=== PATIENT | female | born 1950 | race Caucasian/White ===

== ENCOUNTER 2022-04-05 11:33 | Inpatient (IN) | payer OTHER ==
[~2022-04-05] VITALS: Ht 165.1 cm; Wt 91.6 kg
[2022-04-05] MEDS ORDERED: OXYB5TAB16 PO (12:16)
[2022-04-05] MEDS ORDERED: MULT-24 PO (12:16)
[2022-04-05] MEDS ORDERED: LOSA100T31 PO (12:16)
[2022-04-05] MEDS ORDERED: BUSP15TA3 PO (12:16)
[2022-04-05] MEDS ORDERED: LANS30CA56 PO (12:16)
[2022-04-05] MEDS ORDERED: SPIR25TA6 PO (12:16)
[2022-04-05] MEDS ORDERED: PILO5TAB10 PO (12:16)
[2022-04-05] MEDS ORDERED: CITA20TA16 PO (12:16)
[2022-04-05] MEDS ORDERED: DIPH25CA51 PO (12:16)
[2022-04-05] MEDS ORDERED: FURO40TA5 PO (12:16)
[2022-04-05] MEDS ORDERED: CETI-194 PO (12:16)
[2022-04-05] MEDS ORDERED: DILTIAZEM HCL 50 MG IV IV ONE ×2 (12:30→14:00)
[2022-04-05] MEDS ORDERED: DILTIAZEM HCL 50 MG IV ONE (12:39)
[2022-04-05 12:47] LABS: HEMATOCRIT 38 % (33-45); HEMOGLOBIN 12.2 g/dL (11.5-14.8); LYMPHOCYTES # (AUTO) 0.8 K/uL (0.8-4.8); LYMPHOCYTES % (AUTO) 1.9 % (20.0-44.0); MEAN CORPUSCULAR HGB CONC 32 g/dl (31.0-36.0); MEAN CORPUSCULAR VOLUME 91 fL (82-100); MONOCYTES # (AUTO) 1.2 K/uL (0.1-1.30); MONOCYTES % (AUTO) 2.8 % (2.0-12.0); NEUTROPHILS # (AUTO) 41.3 K/uL (1.8-8.9); NEUTROPHILS % (AUTO) 95.3 % (43.0-81.0); RED BLOOD CELL COUNT(AUTO) 4.16 MIL/uL (4.0-5.2)
[2022-04-05 13:16] LABS: PLATELET COUNT (AUTO) 950 K/uL (150-450); WHITE BLOOD COUNT (AUTO) 43.3 K/uL (4.3-11.0)
--- NOTE | 2022-04-05 13:16 | NUR ---
WBC 43.3 PLATLET 950
[2022-04-05 13:17] LABS: ALANINE AMINOTRANSFERASE 32 U/L (12-78); ALBUMIN 1.7 g/dL (3.4-5.0); ALKALINE PHOSPHATASE 257 U/L (46-116); ASPARTATE AMINOTRANSFERASE 22 U/L (15-37); BILIRUBIN,DIRECT 0.7 mg/dL (0.0-0.2); BILIRUBIN,TOTAL 0.9 mg/dL (0.2-1.0); CALCIUM, SERUM 7.9 mg/dL (8.5-10.1); CARBON DIOXIDE 23 mmol/L (21-32); CHLORIDE 97 mmol/L (98-107); CREATININE 1.9 mg/dL (0.6-1.3); GLUCOSE 96 mg/dL (74-106); SODIUM SERUM 130 mmol/L (136-145); TOTAL PROTEIN, SERUM 5.7 g/dL (6.4-8.2); UREA NITROGEN, BLOOD 66 mg/dL (7-18)
--- NOTE | 2022-04-05 13:18 | NUR ---
SMITH REGAL [phone]
[2022-04-05] MEDS ORDERED: FUROSEMIDE 40 MG/4 ML VIAL IV ONE (13:30)
[2022-04-05] MEDS ORDERED: CEFEPIME 1 GM in IV D5W 50 ML IV ONE (13:30)
[2022-04-05] MEDS ORDERED: VANCOMYCIN 1 GM in IV D5W 250 ML IV ONE (13:30)
[2022-04-05] MEDS ORDERED: DILTIAZEM HCL 25 MG IV ONE (13:38)
[2022-04-05 14:06] LABS: BAND % (MANUAL) 3 % (0.0-5.0); LYMPHOCYTES % (MANUAL) 4 % (16-48); MONOCYTES % (MANUAL) 1 % (0-11.0); NEUTROPHILS % (MANUAL) 92 (42-76)
--- NOTE | 2022-04-05 14:20 | NUR ---
CALLED DR. KIRSTEN PRINCE .
[2022-04-05] MEDS ORDERED: FUROSEMIDE 40 MG/4 ML VIAL ONE (14:40)
[2022-04-05] MEDS ORDERED: DILTIAZEM HCL CD 120 MG PO ONE (15:00)
[2022-04-05] MEDS ORDERED: DILTIAZEM HCL CD 120 MG ONE (16:15)
--- NOTE | 2022-04-05 19:29 | NUR ---
COVID ANTIGEN SWAB COLLECTED AND SENT TO LAB
--- NOTE | 2022-04-05 20:24 | NUR ---
US TECH AT PT'S BEDSIDE FOR ECG
[2022-04-05 20:25] VITALS: BP 125/50
--- NOTE | 2022-04-05 20:29 | NUR ---
REPORT GIVEN TO AIDE PedroW RN FOR EMILIA
--- NOTE | 2022-04-05 20:55 | NUR ---
RN NOTE; RECEIVED PATIENT FROM ER WITH RAMOS BOLIVAR ABLE TO VERBALIZE NEEDS,SUSANA WELL ON RM AIR SATING 99%,NO SIGN SOB/DISTRESS NOTED,NO COMPLAIN FOR PAIN/DISCOMFORT AT THIS TIME,IV ACCESS ON LAC 20G PATENT AND INTACT,PT WAS ORIENT THE RM WITH VERBALLY UNDERSTANDING,SAFETY MEASURE IN PLACE,CALL LIGHT WITHIN REACH,WILL CONTINUE TO MONITOR.
--- NOTE | 2022-04-05 21:03 | NUR ---
PT TRANSFERRED TO [facility]-2 VIA ACLS PROTOCOL. VSS. ALL BELONGINGS WITH PT.
[2022-04-05] MEDS: IV NS 0.9% 1,000 ML IV SCH (22:02)
[2022-04-05] MEDS: PIPERACILLIN /TAZOBACTAM 3.375 G in IV D5W 50 ML IV SCH (23:07)
[2022-04-06] VITALS: BP 104/48
[2022-04-06] MEDS: ZOLPIDEM TARTRATE 10 MG TABLET PO PRN ×2 (00:53→22:43)
--- NOTE | 2022-04-06 00:55 | NUR ---
RN NOTE; I TEXTED DOC,MIRANDA SINGLETARY,VTE SCORE 2 AND PT COMPLAINED CAN'T SLEEP,PT ASKING FOR SLEEPING PILL.WITH A NEW ORDER,AMBIEN 10MG QHS PRN AND HEPARIN 5000 U SQ Q12HRS.
[2022-04-06 04:00] VITALS: BP 124/59
[2022-04-06] MEDS: IV NS 0.9% 1,000 ML IV SCH ×2 (05:05→15:30)
[2022-04-06] MEDS: PIPERACILLIN /TAZOBACTAM 3.375 G in IV D5W 50 ML IV SCH ×4 (05:10→23:05)
--- NOTE | 2022-04-06 06:29 | NUR ---
RN CLOSING NOTE; PATIENT IN BED AAOX4 ABLE TO MAKE NEEDS KNOWN,SUSANA WELL ON RM AIR SATING 98%,NO SIGN SOB/DISTRESS NOTED,NO COMPLAIN FOR PAIN/DISCOMFORT DURING SHIFT,DUE MEDS GIVEN ORDER.ALL NEEDS ATTENDED,IV ACCESS ON LAC 20G RUNNING NS 100ML/HR,SAFETY MEASURE IN PLACE,CALL LIGHT WITHIN REACH,WILL ENDORSED TO NEXT SHIFT.
--- NOTE | 2022-04-06 07:30 | NUR ---
RN Accepting Note Patient AOx4 able to express her own concerns. Patient made aware of plan of care, verbalized understanding. Patient with no signs of distress or discomfort, all safety precautions taken, call light and table within reach and bed at lowest position. Will monitor and provide care as needed
[2022-04-06 07:33] LABS: BASOPHILS % (AUTO) 0.1 % (0.0-2.0); EOSINOPHILS % (AUTO) 0.2 % (0.0-6.0); HEMATOCRIT 32 % (33-45); LYMPHOCYTES # (AUTO) 1.1 K/uL (0.8-4.8); LYMPHOCYTES % (AUTO) 4.4 % (20.0-44.0); MEAN CORPUSCULAR HGB CONC 34 g/dl (31.0-36.0); MEAN CORPUSCULAR VOLUME 91 fL (82-100); MONOCYTES # (AUTO) 1.3 K/uL (0.1-1.30); MONOCYTES % (AUTO) 5.2 % (2.0-12.0); NEUTROPHILS # (AUTO) 22.2 K/uL (1.8-8.9); NEUTROPHILS % (AUTO) 90.1 % (43.0-81.0); PLATELET COUNT (AUTO) 814 K/uL (150-450); RED BLOOD CELL COUNT(AUTO) 3.58 MIL/uL (4.0-5.2); WHITE BLOOD COUNT (AUTO) 24.6 K/uL (4.3-11.0)
[2022-04-06 07:52] LABS: ALANINE AMINOTRANSFERASE 25 U/L (12-78); ALKALINE PHOSPHATASE 199 U/L (46-116); ASPARTATE AMINOTRANSFERASE 22 U/L (15-37); BILIRUBIN,TOTAL 0.7 mg/dL (0.2-1.0); CALCIUM, SERUM 7.1 mg/dL (8.5-10.1); CARBON DIOXIDE 22 mmol/L (21-32); CHLORIDE 100 mmol/L (98-107); CREATININE 1.7 mg/dL (0.6-1.3); GLUCOSE 87 mg/dL (74-106); MAGNESIUM 2.8 mg/dL (1.8-2.4); POTASSIUM 3.7 mmol/L (3.5-5.1); SODIUM SERUM 131 mmol/L (136-145); TOTAL PROTEIN, SERUM 4.6 g/dL (6.4-8.2); UREA NITROGEN, BLOOD 66 mg/dL (7-18)
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
[2022-04-06 08:00] VITALS: BP 134/77
[2022-04-06] MEDS ORDERED: Z GUARD REMEDY 4 OZ OINT TP PRN (08:00)
[2022-04-06 08:12] LABS: ALBUMIN 1.3 g/dL (3.4-5.0)
[2022-04-06] MEDS: OXYBUTYNIN CHLORIDE 5 MG TABLET PO SCH ×3 (08:20→17:38)
[2022-04-06] MEDS: CITALOPRAM HYDROBROMIDE 20 MG TABLET PO SCH (08:27)
[2022-04-06] MEDS: Z GUARD REMEDY 4 OZ OINT TP SCH (08:27)
[2022-04-06] MEDS: PILOCARPINE HCL 5 MG TABLET PO SCH (08:27)
[2022-04-06] MEDS: HEPARIN SODIUM, PORCINE 5000 UNITS/1 ML VIAL SQ SCH ×3 (08:29→20:16)
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
[2022-04-06 12:00] VITALS: BP 136/72
[2022-04-06] MEDS: VANCOMYCIN 0.75 GM in IV D5W 250 ML IV SCH (12:59)
[2022-04-06 16:00] VITALS: BP 139/65
[2022-04-06] MEDS: METOPROLOL SUCCINATE 25 MG TAB.SR.24H PO SCH (18:09)
--- NOTE | 2022-04-06 18:55 | NUR ---
RN Closing Note Patient AOx4 able to explain her concerns. Patients was at bedside throughout shift providing event planning manager. All questions answered and educated on importance of following plan of care in hospital and after discharge. Diet changed to pureed since patient not able to chew food. Patient and educated on aspiration precautions. All safety precautions taken, call light and table within reach and bed at lowest position. Will endorse report to night nurse for continuity of care.
--- NOTE | 2022-04-06 19:30 | NUR ---
COMMERCIAL LENDER OPENING NOTE RECEIVED PT AWAKE IN BED. A/O X4 AND ABLE TO MAKE NEEDS KNOWN. PT STABLE ON ROOM AIR. NO SOB OR S/S OF RESPIRATORY DISTRESS. BREATHING EVEN AND UNLABORED. ON EXTERNAL CALCULATING MACHINE MECHANIC READING SR 87 BPM. IV ACCESS LAC 20G, INTACT AND PATENT. SAFETY PRECAUTIONS IN PLACE. BED IN LOWEST LOCKED POSITION, HOB ELEVATED, SIDE RAILS UP X3, AND CALL LIGHT AND TABLE WITHIN REACH. ALL NEEDS MET AT THIS TIME.
[2022-04-06 20:00] VITALS: BP 118/53
--- NOTE | 2022-04-06 22:43 | NUR ---
RN NOTE PT REQUESTED SLEEPING PILL. ADMINISTERED AMBIEN 10 MG FOR INSOMNIA ORDERED. MADE COMFORTABLE IN BED. ALL NEEDS MET AT THIS TIME.
[2022-04-07] VITALS: BP 119/60
[2022-04-07] MEDS: IV NS 0.9% 1,000 ML IV SCH ×3 (01:34→20:52)
[2022-04-07] MEDS: PIPERACILLIN /TAZOBACTAM 3.375 G in IV D5W 50 ML IV SCH ×3 (06:09→17:51)
--- NOTE | 2022-04-07 06:52 | NUR ---
SUPERVISOR TANK HOUSE CLOSING NOTE PT AWAKE IN BED. A/O X4 AND ABLE TO MAKE NEEDS KNOWN. PT STABLE ON ROOM AIR. NO SOB OR S/S OF RESPIRATORY DISTRESS. BREATHING EVEN AND UNLABORED. ON EXTERNAL GLOBAL LOGISTICS ANALYST READING SR 68 BPM WITH PACS. IV ACCESS L WRIST 22G, INTACT AND PATENT. ALL DUE MEDS GIVEN ORDERED. KEPT CLEAN AND DRY. SAFETY PRECAUTIONS IN PLACE AT ALL TIMES. BED IN LOWEST LOCKED POSITION, HOB ELEVATED, SIDE RAILS UP X3, AND CALL LIGHT AND TABLE WITHIN REACH. ALL NEEDS MET AT THIS TIME AND WILL ENDORSE TO ONCOMING NURSE FOR EMILIA.
[2022-04-07 07:03] LABS: BASOPHILS % (AUTO) 0.1 % (0.0-2.0); EOSINOPHILS % (AUTO) 1.8 % (0.0-6.0); HEMATOCRIT 33 % (33-45); HEMOGLOBIN 10.8 g/dL (11.5-14.8); LYMPHOCYTES # (AUTO) 1.2 K/uL (0.8-4.8); LYMPHOCYTES % (AUTO) 9.3 % (20.0-44.0); MEAN CORPUSCULAR HGB CONC 33 g/dl (31.0-36.0); MEAN CORPUSCULAR VOLUME 90 fL (82-100); MONOCYTES # (AUTO) 1.1 K/uL (0.1-1.30); NEUTROPHILS # (AUTO) 10.8 K/uL (1.8-8.9); NEUTROPHILS % (AUTO) 80.8 % (43.0-81.0); PLATELET COUNT (AUTO) 821 K/uL (150-450); RED BLOOD CELL COUNT(AUTO) 3.61 MIL/uL (4.0-5.2); WHITE BLOOD COUNT (AUTO) 13.3 K/uL (4.3-11.0)
[2022-04-07 07:58] LABS: BILIRUBIN,TOTAL 0.5 mg/dL (0.2-1.0); CALCIUM, SERUM 7.4 mg/dL (8.5-10.1); CREATININE 1.3 mg/dL (0.6-1.3); POTASSIUM 3.4 mmol/L (3.5-5.1); TOTAL PROTEIN, SERUM 4.6 g/dL (6.4-8.2)
[2022-04-07 08:00] VITALS: BP 143/66
--- NOTE | 2022-04-07 08:04 | NUR ---
RN Receiving Report. Patient AOx4 able to express her own concerns. Patient sleeping, easily aroused. Patient made aware of plan of care and agrees. Patient in bed with no signs of distress or discomfort. All safety precautions taken, call light and table within reach, bed at lowest position. Patients vital signs stable, oxygen saturation 100%, no signs of respiratory distress.
[2022-04-07 08:06] LABS: ALBUMIN 1.2 g/dL (3.4-5.0)
[2022-04-07] MEDS: HEPARIN SODIUM, PORCINE 5000 UNITS/1 ML VIAL SQ SCH ×2 (09:00→20:48)
[2022-04-07] MEDS: CITALOPRAM HYDROBROMIDE 20 MG TABLET PO SCH (09:09)
[2022-04-07] MEDS: OXYBUTYNIN CHLORIDE 5 MG TABLET PO SCH ×3 (09:09→17:49)
[2022-04-07] MEDS: Z GUARD REMEDY 4 OZ OINT TP SCH (09:10)
[2022-04-07] MEDS: PILOCARPINE HCL 5 MG TABLET PO SCH (09:14)
[2022-04-07] MEDS ORDERED: POTASSIUM CHLORIDE 20 MEQ TAB.PRT.SR PO SCH (11:00)
[2022-04-07] MEDS: VANCOMYCIN 0.75 GM in IV D5W 250 ML IV SCH (12:11)
[2022-04-07 16:00] VITALS: BP 136/71
[2022-04-07 17:39] LABS: EOSINOPHILS % (MANUAL) 1 % (0-4); LYMPHOCYTES % (MANUAL) 10 % (16-48); MONOCYTES % (MANUAL) 8 % (0-11.0); NEUTROPHILS % (MANUAL) 81 (42-76)
[2022-04-07] MEDS: ENSURE ENLIVE 237 ML LIQUID (VANILLA) PO SCH (17:49)
[2022-04-07] MEDS: METOPROLOL SUCCINATE 25 MG TAB.SR.24H PO SCH (17:51)
--- NOTE | 2022-04-07 19:46 | NUR ---
RN Closing Note Patient AOx4 able to express her concerns. No signs of discomfort or distress. Patient stable throughout shift, administered medication and provided care as needed. All safety precautions taken, call light and table within reach. Will endorse to night nurse for continuity of care.
[2022-04-07 20:00] VITALS: BP 123/59
--- NOTE | 2022-04-07 20:21 | NUR ---
RN OPENING Note Patient AOx4 able to express her concerns. No signs of discomfort or distress. Patient stable All safety precautions taken, call light and table within reach.
--- NOTE | 2022-04-07 20:48 | NUR ---
RN NOTE PER SCHEDULE CLERK ANNE-MARIE KIRKLAND TO HOLD HEPARIN TONIGHT FOR IR GUIDED PIGTAIL PLACEMENT.
[2022-04-07] MEDS: ZOLPIDEM TARTRATE 10 MG TABLET PO PRN (21:28)
[2022-04-08] MEDS: PIPERACILLIN /TAZOBACTAM 3.375 G in IV D5W 50 ML IV SCH ×5 (00:17→23:59)
[2022-04-08 04:00] VITALS: BP 134/86
--- NOTE | 2022-04-08 06:44 | NUR ---
RN closing Note Patient AOx4 able to express her concerns. No signs of discomfort or distress. Patient stable All safety precautions taken, call light and table within reach. pt aware that she is to have IR CT guided pigtail placement today. all due meds given and tolerated well. will endorse mitch to day shift nurse.
[2022-04-08 06:49] LABS: BASOPHILS % (AUTO) 0.3 % (0.0-2.0); EOSINOPHILS % (AUTO) 3.2 % (0.0-6.0); HEMATOCRIT 33 % (33-45); HEMOGLOBIN 10.9 g/dL (11.5-14.8); LYMPHOCYTES # (AUTO) 1.3 K/uL (0.8-4.8); LYMPHOCYTES % (AUTO) 9.6 % (20.0-44.0); MEAN CORPUSCULAR HGB CONC 33 g/dl (31.0-36.0); MEAN CORPUSCULAR VOLUME 91 fL (82-100); MONOCYTES # (AUTO) 0.9 K/uL (0.1-1.30); MONOCYTES % (AUTO) 7.1 % (2.0-12.0); NEUTROPHILS # (AUTO) 10.4 K/uL (1.8-8.9); NEUTROPHILS % (AUTO) 79.8 % (43.0-81.0); PLATELET COUNT (AUTO) 892 K/uL (150-450); RED BLOOD CELL COUNT(AUTO) 3.66 MIL/uL (4.0-5.2); WHITE BLOOD COUNT (AUTO) 13.1 K/uL (4.3-11.0)
--- NOTE | 2022-04-08 07:30 | NUR ---
RN Receiving Report. Patient AOx4 able to express her own concerns. Patient sleeping, easily aroused. Patient made aware of plan of care and agrees with pigtail insertion if needed. Patient in bed with no signs of distress or discomfort. All safety precautions taken, call light and table within reach, bed at lowest position. Patients vital signs stable, no signs of respiratory distress.
[2022-04-08 07:41] LABS: CALCIUM, SERUM 7.8 mg/dL (8.5-10.1); CREATININE 0.9 mg/dL (0.6-1.3); POTASSIUM 3.7 mmol/L (3.5-5.1)
[2022-04-08 08:00] VITALS: BP 145/74
[2022-04-08] MEDS: OXYBUTYNIN CHLORIDE 5 MG TABLET PO SCH ×3 (08:08→17:14)
[2022-04-08] MEDS: CITALOPRAM HYDROBROMIDE 20 MG TABLET PO SCH (08:08)
[2022-04-08] MEDS: PILOCARPINE HCL 5 MG TABLET PO SCH (08:08)
[2022-04-08] MEDS: Z GUARD REMEDY 4 OZ OINT TP SCH (08:09)
[2022-04-08] MEDS: HEPARIN SODIUM, PORCINE 5000 UNITS/1 ML VIAL SQ SCH ×2 (08:11→21:14)
[2022-04-08] MEDS: ENSURE ENLIVE 237 ML LIQUID (VANILLA) PO SCH ×2 (08:11→17:15)
[2022-04-08] MEDS: IV NS 0.9% 1,000 ML IV SCH ×2 (08:11→18:06)
[2022-04-08] MEDS: VANCOMYCIN 0.75 GM in IV D5W 250 ML IV SCH (12:08)
[2022-04-08] MEDS ORDERED: FLUMAZENIL 0.5 MG VIAL IV PRN (15:00)
[2022-04-08] MEDS ORDERED: FENTANYL PF 250MCG/5ML AMPUL IV PRN (15:00)
[2022-04-08] MEDS ORDERED: NALOXONE PREFILLED SYRINGE 2 MG/2 ML SYRINGE IV PRN (15:00)
[2022-04-08] MEDS ORDERED: MIDAZOLAM HCL 2 MG/2ML VIAL IV PRN (15:00)
[2022-04-08] MEDS ORDERED: LIDOCAINE HCL/PF 1% 30 ML SDV ONE (15:19)
--- NOTE | 2022-04-08 18:10 | NUR ---
RN Closing Note Patient AOx4 able to express her concerns. No signs of discomfort or distress. Patient stable throughout shift, administered medication and provided care as needed. Patient had pigtail placement today. All safety precautions taken, call light and table within reach. Will endorse to night nurse for continuity of care.
[2022-04-08] MEDS: METOPROLOL SUCCINATE 25 MG TAB.SR.24H PO SCH (18:44)
--- NOTE | 2022-04-08 19:49 | NUR ---
RN OPENING NOTES RECEIVED PT IN BED, AWAKE, WATCHING TV. AOx4, ABLE TO MAKE NEEDS KNOWN. ON RA AND TOLERATING WELL. NO SOB NOTED. NO S/SX OF RESPIRATORY DISTRESS NOTED. TELE MONITOR DETECTS SINUS RHYTHM WITH RATE OF 83. IV ACCESS IN L WRIST #20G RUNNING NS @ 100 ML/HR. SAFETY PRECAUTIONS IN PLACE: BED IN LOWEST, LOCKED POSITION, SIDERAILS UPx2, AND BRAKES ON. TABLE AND CALL LIGHT WITHIN REACH. ALL NEEDS MET AT THIS TIME.
[2022-04-08 21:11] VITALS: BP 139/57
[2022-04-08] MEDS: ZOLPIDEM TARTRATE 10 MG TABLET PO PRN (21:13)
[2022-04-09 01:18] VITALS: BP 130/55
[2022-04-09] MEDS: IV NS 0.9% 1,000 ML IV SCH ×3 (03:13→23:34)
[2022-04-09] MEDS: PIPERACILLIN /TAZOBACTAM 3.375 G in IV D5W 50 ML IV SCH ×4 (05:54→23:31)
[2022-04-09 06:14] VITALS: BP 134/70
[2022-04-09 07:02] LABS: BASOPHILS % (AUTO) 0.1 % (0.0-2.0); EOSINOPHILS % (AUTO) 2.6 % (0.0-6.0); HEMATOCRIT 31 % (33-45); LYMPHOCYTES # (AUTO) 0.9 K/uL (0.8-4.8); LYMPHOCYTES % (AUTO) 7.1 % (20.0-44.0); MEAN CORPUSCULAR HGB CONC 33 g/dl (31.0-36.0); MEAN CORPUSCULAR VOLUME 92 fL (82-100); MONOCYTES # (AUTO) 0.9 K/uL (0.1-1.30); MONOCYTES % (AUTO) 7.3 % (2.0-12.0); NEUTROPHILS # (AUTO) 10.6 K/uL (1.8-8.9); NEUTROPHILS % (AUTO) 82.9 % (43.0-81.0); PLATELET COUNT (AUTO) 769 K/uL (150-450); RED BLOOD CELL COUNT(AUTO) 3.32 MIL/uL (4.0-5.2); WHITE BLOOD COUNT (AUTO) 12.8 K/uL (4.3-11.0)
--- NOTE | 2022-04-09 07:20 | NUR ---
RN OPENING NOTE RECEIVED PATIENT IN BED, AWAKE, A/O X4, VERBALLY RESPONSIVE. NO SIGNS OF ACUTE DISTRESS NOTED. ON ROOM AIR, TOLERATING WELL. DENIES ANY PAIN AT THIS TIME. ON REGIONAL SALES ENGINEER SHOWING SINUS RHYTHM, HR @80. WITH IV ACCESS ON LEFT WRIST #20G, INTACT AND PATENT WITH NS @100ML/HR RUNNING. WITH LEFT CHEST TUBE INTACT, CURRENTLY DRAINED 560 ML PLEURAL FLUID. WITH PUREWICK CATHETER TO WALL SUCTION NOTED WITH ROXANNA COLORED URINE. SAFETY MEASURE IN PLACE. BED IN LOWEST AND LOCKED POSITION, SIDE RAILS UP X2, CALL LIGHT PLACED WITHIN EASY REACH. WILL CONTINUE TO MONITOR PATIENT.
--- NOTE | 2022-04-09 07:37 | NUR ---
RN CLOSING NOTES PT IN BED, AWAKE. AOx4, ABLE TO MAKE NEEDS KNOWN. ON RA AND TOLERATING WELL. NO SOB NOTED. NO S/SX OF RESPIRATORY DISTRESS NOTED. TELE MONITOR DETECTS SINUS RHYTHM WITH RATE OF 83. IV ACCESS IN L WRIST #20G RUNNING NS @ 100 ML/HR. ALL ORDERS CARRIED OUT. ALL NEEDS MET. PT KEPT CLEAN AND DRY. SAFETY PRECAUTIONS IN PLACE: BED IN LOWEST, LOCKED POSITION, SIDERAILS UPx2, AND BRAKES ON. TABLE AND CALL LIGHT WITHIN REACH. WILL ENDORSE TO ONCOMING SHIFT FOR EMILIA.
[2022-04-09 07:48] LABS: CALCIUM, SERUM 7.6 mg/dL (8.5-10.1); CREATININE 0.6 mg/dL (0.6-1.3); POTASSIUM 3.3 mmol/L (3.5-5.1)
[2022-04-09 08:34] VITALS: BP 154/73
[2022-04-09] MEDS: HEPARIN SODIUM, PORCINE 5000 UNITS/1 ML VIAL SQ SCH ×2 (08:54→21:28)
[2022-04-09] MEDS: CITALOPRAM HYDROBROMIDE 20 MG TABLET PO SCH (08:55)
[2022-04-09] MEDS: OXYBUTYNIN CHLORIDE 5 MG TABLET PO SCH ×3 (08:55→16:51)
[2022-04-09] MEDS: PILOCARPINE HCL 5 MG TABLET PO SCH (08:55)
[2022-04-09] MEDS: ENSURE ENLIVE 237 ML LIQUID (VANILLA) PO SCH ×2 (08:56→17:44)
[2022-04-09] MEDS: Z GUARD REMEDY 4 OZ OINT TP SCH (08:57)
[2022-04-09] MEDS ORDERED: POTASSIUM CHLORIDE 20 MEQ TAB.PRT.SR PO ONE (10:00)
[2022-04-09 12:01] VITALS: BP 142/78
[2022-04-09] MEDS: VANCOMYCIN 0.75 GM in IV D5W 250 ML IV SCH (12:48)
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
[2022-04-09] MEDS: METOPROLOL SUCCINATE 25 MG TAB.SR.24H PO SCH (17:43)
--- NOTE | 2022-04-09 18:59 | NUR ---
RN CLOSING NOTE PATIENT IN BED, ASLEEP, NO SIGNS OF ACUTE DISTRESS NOTED. REMAINS STABLE ON ROOM AIR, NO SOB NOTED, BREATHING EVEN AND UNLABORED. DENIES ANY PAIN AT THIS TIME. ON FERRY HAND SHOWING SINUS RHYTHM, HR @82. IV ACCESS ON LEFT WRIST #20G, INTACT AND PATENT WITH NS @100ML/HR RUNNING. WITH LEFT CHEST TUBE INTACT, DRAINED 110ML PLEURAL FLUID THIS SHIFT. WITH PUREWICK CATHETER TO WALL SUCTION NOTED WITH ROXANNA COLORED URINE. WITH SOFT MULTIPLE BOWEL MOVEMENT, KEPT PATIENT CLEAN AND DRY. TREATMENT RENDERED TO SACRAL DTI. SAFETY MEASURE IN PLACE. BED IN LOWEST AND LOCKED POSITION, SIDE RAILS UP X2, CALL LIGHT PLACED WITHIN EASY REACH. WILL ENDORSE TO NEXT SHIFT FOR CONTINUITY OF CARE.
--- NOTE | 2022-04-09 19:25 | NUR ---
WILDERNESS GUIDE OPENING NOTE PATIENT IS IN BED, AWAKE, A/O X4, SHE IS ON RA, NO S/S OF DISTRESS OR SOB. TOLERATED WELL. DENIES DENIES OF HAVING PAIN. SHE IS ON EXTERNAL SURVEYOR'S ASSISTANT SHOWING SINUS RHYTHM WITH PACs AT 80s. IV ACCESS IS ON LEFT WRIST, #20G, INTACT AND PATENT, RUINING NS @ 100ML/HR. LEFT CHEST TUBE PATENT AND INTACT, DRAINING FREELY. PATIENT HAS PURIWICK CATHETER, CONNECTING WITH THE WALL SUCTION; ROXANNA COLORED URINE. SAFETY MEASURE IN PLACE: BED IN LOWEST AND LOCKED POSITION, SIDE RAILS UP X2, CALL LIGHT AND TABLE ARE WITHIN EASY REACH. WILL CONTINUE TO MONITOR PATIENT AND PROVIDE THE CARE PATIENT NEEDS.
--- NOTE | 2022-04-09 21:30 | NUR ---
GELACIO YBARRA HEPARIN WAS HELD PER MD ORDER. Addendum: 04/10/22 at 0458 by OMID MURRAY RN ERROR
[2022-04-09] MEDS: ZOLPIDEM TARTRATE 10 MG TABLET PO PRN (21:36)
[2022-04-10] MEDS: PIPERACILLIN /TAZOBACTAM 3.375 G in IV D5W 50 ML IV SCH ×3 (05:11→18:00)
--- NOTE | 2022-04-10 05:36 | NUR ---
SUPPLY CHAIN GENERALIST NOTE PATIENT'S CHEST TUBE OUTPUT DURING THE SHIFT IS 120 ML.
[2022-04-10] MEDS: ACETAMINOPHEN 325 MG TABLET PO PRN (06:28)
--- NOTE | 2022-04-10 07:02 | NUR ---
DISPATCH ASSOCIATE CLOSING NOTE PATIENT IS IN BED, SLEEPING. SHE IS ON RA, NO S/S OF DISTRESS OR SOB. TOLERATED WELL. SHE IS ON EXTERNAL PYTHON ENGINEER SHOWING SINUS RHYTHM WITH PACs AT 80s. IV ACCESS IS ON LEFT WRIST, #20G, INTACT AND PATENT, RUINING NS @ 100 ML/HR. LEFT CHEST TUBE PATENT AND INTACT, DRAINING FREELY. PATIENT'S PURIWICK CATHETER, CONNECTING WITH THE WALL SUCTION RUNNING SMOOTHLY; ROXANNA COLORED URINE. SAFETY MEASURE IN PLACE: BED IN LOWEST AND LOCKED POSITION, SIDE RAILS UP X2, CALL LIGHT AND TABLE ARE WITHIN EASY REACH. WILL ENDORSE NEXT SHIFT NURSE FOR CONTINUING PATIENT CARE.
--- NOTE | 2022-04-10 07:50 | NUR ---
CHEST TUBE NOTED. SHEILA AT 800ML SHEILA. INSERTION SITE DRY AND INTACT.
[2022-04-10 08:00] VITALS: BP 152/67
[2022-04-10] MEDS: ENSURE ENLIVE 237 ML LIQUID (VANILLA) PO SCH ×2 (08:00→17:00)
[2022-04-10 08:16] LABS: CALCIUM, SERUM 7.2 mg/dL (8.5-10.1); CREATININE 0.6 mg/dL (0.6-1.3); POTASSIUM 3.6 mmol/L (3.5-5.1)
[2022-04-10] MEDS: Z GUARD REMEDY 4 OZ OINT TP SCH (09:00)
[2022-04-10] MEDS: IV NS 0.9% 1,000 ML IV SCH ×2 (09:30→19:30)
[2022-04-10] MEDS: OXYBUTYNIN CHLORIDE 5 MG TABLET PO SCH ×3 (10:22→18:34)
[2022-04-10] MEDS: METOPROLOL SUCCINATE 25 MG TAB.SR.24H PO SCH (10:23)
[2022-04-10] MEDS: CITALOPRAM HYDROBROMIDE 20 MG TABLET PO SCH (10:24)
[2022-04-10] MEDS: HEPARIN SODIUM, PORCINE 5000 UNITS/1 ML VIAL SQ SCH ×2 (10:24→21:30)
[2022-04-10] MEDS: PILOCARPINE HCL 5 MG TABLET PO SCH (10:27)
[2022-04-10 12:00] VITALS: BP 142/74
[2022-04-10] MEDS: VANCOMYCIN 0.75 GM in IV D5W 250 ML IV SCH (12:21)
--- NOTE | 2022-04-10 15:21 | NUR ---
DIARRHEA NOTED, REPORTED TO MD. NEW ORDER TO STOP ZOSYN . ALANA MAIN
[2022-04-10 16:00] VITALS: BP 145/60
--- NOTE | 2022-04-10 19:07 | NUR ---
STOOL SAMPLE SENT TO LAB TO RULE OUT C DIFF. EMILY Gordon RN
--- NOTE | 2022-04-10 19:55 | NUR ---
CHEST TUBE DRAINAGE 811ML. INSERTION SITE STILL INTACT. NO DISCOMFORT NOTED.
[2022-04-10 20:00] VITALS: BP 144/68
--- NOTE | 2022-04-10 20:00 | NUR ---
RECEIVED PATIENT IN BED, ALERT/ORIENTED X3, ROOM AIR, SPO2 97%, NO DISTRESS, LEFT CHEST PIG TAIL BY GRAVITY ATTACHED TO CHEST TUBE, NO COMPLAIN OF PAIN, ASSISTED WITH BEDPAN, NO BM, PUREWICK IN PLACE, DARK YELLOW URINE OUTPUT, KEPT SAFE, CALL LIGHT WITHIN REACH.
--- NOTE | 2022-04-10 20:54 | NUR ---
NS NOT ADMINISTERED, PREVIOUS IV STILL INFUSING
[2022-04-10] MEDS: ZOLPIDEM TARTRATE 10 MG TABLET PO PRN (21:34)
[2022-04-11] VITALS: BP 149/70
[2022-04-11 00:12] VITALS: BP 149/70
[2022-04-11] MEDS: IV NS 0.9% 1,000 ML IV SCH ×2 (02:56→13:16)
[2022-04-11 04:00] VITALS: BP 156/70
[2022-04-11] MEDS: ACETAMINOPHEN 325 MG TABLET PO PRN ×2 (05:24→16:36)
--- NOTE | 2022-04-11 06:32 | NUR ---
ALERT/ORIENTED X4, ROOM AIR, NO COMPLAIN OF PAIN, LEFT CHEST PIG TAIL CONNECTED TO CHEST TUBE, DRESSING INTACT, NO NEW OUTPUT, REMAINED 800 ML, SANGUINEOUS DRAINAGE, BEDREST, INCONTINENT OF URINE, NO BM DURING SHIFT, PENDING STOOL FOR CDIFF. CONTINUE CHEST TUBE DRAINAGE MANAGEMENT, VANCOMYCIN.
--- NOTE | 2022-04-11 07:00 | NUR ---
CLEANING AND MAINTENANCE WORKER OPENING NOTES: RECEIVED PT IN BED AWAKE, ALERT AND ORIENTED X 3 AND ABLE TO MAKE NEEDS KNOWN. NO SOB OR CARDIAC DISTRESS NOTED. DENIES PAIN AT THIS TIME, ON MAKEUP ARTIST WITH CURRENT READING OF SINUS RHYTHM 84 BPM WITH PACS. CHEST TUBE ON LEFT SIDE/LUNG PATENT AND INTACT. IV ACCESS ON LEFT WRIST GAUGE 20 PATENT INTACT AND INFUSING NS 1L @ 100 CC/HR. SAFETY MEASURES MAINTAINED : BED LOCKED AND IN LOWEST POSITION. SIDE RAILS UP X 2 CALL LIGHT AND BED SIDE TABLE IN EASY REACH FOR HELP. WILL MONITOR PT ACCORDINGLY.
[2022-04-11 07:46] LABS: BASOPHILS % (AUTO) 0.3 % (0.0-2.0); EOSINOPHILS % (AUTO) 2.5 % (0.0-6.0); HEMATOCRIT 28 % (33-45); HEMOGLOBIN 9.4 g/dL (11.5-14.8); LYMPHOCYTES # (AUTO) 1.2 K/uL (0.8-4.8); LYMPHOCYTES % (AUTO) 8.4 % (20.0-44.0); MEAN CORPUSCULAR HGB CONC 33 g/dl (31.0-36.0); MEAN CORPUSCULAR VOLUME 92 fL (82-100); MONOCYTES # (AUTO) 0.9 K/uL (0.1-1.30); MONOCYTES % (AUTO) 6.7 % (2.0-12.0); NEUTROPHILS # (AUTO) 11.5 K/uL (1.8-8.9); NEUTROPHILS % (AUTO) 82.1 % (43.0-81.0); PLATELET COUNT (AUTO) 730 K/uL (150-450); RED BLOOD CELL COUNT(AUTO) 3.08 MIL/uL (4.0-5.2)
[2022-04-11] MEDS: ENSURE ENLIVE 237 ML LIQUID (VANILLA) PO SCH ×2 (08:03→16:34)
[2022-04-11 08:19] LABS: CALCIUM, SERUM 7.6 mg/dL (8.5-10.1); CARBON DIOXIDE 25 mmol/L (21-32); CHLORIDE 111 mmol/L (98-107); CREATININE 0.5 mg/dL (0.6-1.3); GLUCOSE 101 mg/dL (74-106); POTASSIUM 3.9 mmol/L (3.5-5.1); SODIUM SERUM 142 mmol/L (136-145); UREA NITROGEN, BLOOD 12 mg/dL (7-18)
[2022-04-11] MEDS: OXYBUTYNIN CHLORIDE 5 MG TABLET PO SCH ×3 (09:18→16:33)
[2022-04-11] MEDS: CITALOPRAM HYDROBROMIDE 20 MG TABLET PO SCH (09:18)
[2022-04-11] MEDS: HEPARIN SODIUM, PORCINE 5000 UNITS/1 ML VIAL SQ SCH ×2 (09:20→21:27)
[2022-04-11] MEDS: PILOCARPINE HCL 5 MG TABLET PO SCH (09:43)
[2022-04-11] MEDS: Z GUARD REMEDY 4 OZ OINT TP SCH (09:43)
[2022-04-11] MEDS: VANCOMYCIN 0.75 GM in IV D5W 250 ML IV SCH (11:54)
[2022-04-11] MEDS: CALCIUM CARBONATE 500 MG TAB.CHEW PO PRN (12:30)
[2022-04-11] MEDS: METOPROLOL SUCCINATE 25 MG TAB.SR.24H PO SCH (17:51)
--- NOTE | 2022-04-11 19:27 | NUR ---
CAP BLOCKER CLOSING NOTES: PATIENT IN BED, AWAKE ALERT AND ORIENTED X 4 AND ABLE TO MAKE NEEDS KNOWN. NO SOB OR CARDIAC DISTRESS NOTED. DENIES PAIN AT THIS TIME. ON ROOM AIR AN TOLERATING WELL. ON PSYCH SALES SPECIALIST WITH CURRENT READING OF:SINUS @80BPM , CHEST TUBE/PIGTAIL CATHETER DRAINAGE INTACT OUTPUT IS 200ML. PUREWICK IN PLACE AND DRAINING CLEAR YELLOW COLORED URINE VIA SUCTION. IV ACCES NOTED ON LEFT HAND GAUGE 20 PATENT INTACT AND INFUSING IV FLUIDS NS 100ML/HR. SAFETY MEASURES MAINTAINED: BED LOCKED AND IN LOWEST POSITION, SIDE RAILS UP X 2 CALL LIGHT AND BED SIDE TABLE IN EASY REACH. ENDORSED TO CONTOUR PATH TAPE MILL OPERATOR RN FOR CONTINUITY OF CARE.
--- NOTE | 2022-04-11 19:35 | NUR ---
BOTTLE HOUSE PUMPER OPENING NOTE RECEIVED PATIENT IN BED; AWAKE, ALERT AND ORIENTED X 4. ON ROOM AIR; TOLERATING WELL. BREATHING EVEN AND NONLABORED. NOT IN ANY FORM OF RESPIRATORY OR CARDIAC DISTRESS. DENIES ANY PAIN OR DISCOMFORT AT THIS TIME. ON TELEMETRY MONITORING WITH CURRENT READING OF SINUS RHYTHM WITH PACs HR-89 BPM. WITH IV ACCESS ON LEFT WRIST 20G; PATENT AND INTACT INFUSING WITH NS 1L RUNNING @ 100 ML/HR; FLUSHES WELL. WITH LEFT CHEST PIG TAIL CONNECTED TO CHEST TUBE; PATENT AND INTACT. ABLE TO VERBALIZE NEEDS. SAFETY PRECAUTIONS IMPLEMENTED: CALL LIGHT AND TABLE WITHIN REACH, SIDE RAILS UP X 2, BED IN LOWEST LOCKED POSITION. WILL CONTINUE TO MONITOR
[2022-04-11 20:00] VITALS: BP 151/70
[2022-04-11 21:14] VITALS: BP 151/70
[2022-04-11] MEDS: ZOLPIDEM TARTRATE 10 MG TABLET PO PRN (21:30)
--- NOTE | 2022-04-11 23:00 | NUR ---
RN NOTE PATIENT REFUSED PICTURES TO BE TAKEN; REQUESTED TO HAVE IT DONE AFTER BREAKFAST. CHARGE NURSE ARASH LEIGH.
[2022-04-12] VITALS (8 sets, daily range): BP systolic 132–171; BP diastolic 69–88
[2022-04-12] MEDS: IV NS 0.9% 1,000 ML IV SCH ×2 (01:45→13:08)
[2022-04-12] MEDS: ACETAMINOPHEN 325 MG TABLET PO PRN (04:54)
--- NOTE | 2022-04-12 06:45 | NUR ---
STEVEDORE DOCK CLOSING NOTE PATIENT IN BED; AWAKE, A/O X 4. STABLE ON ROOM AIR. REMAINED STABLE; IN NO ACUTE DISTRESS. NO C/O PAIN OR DISCOMFORT AT THIS TIME. ON TELEMETRY MONITORING WITH CURRENT READING OF SINUS RHYTHM WITH PACs HR-92 BPM. WITH IV ACCESS ON LEFT WRIST 20G; PATENT AND INTACT INFUSING WITH NS 1L REGULATED @ 100 ML/HR; FLUSHES WELL. WITH LEFT CHEST PIG TAIL CONNECTED TO CHEST TUBE; PATENT AND INTACT. ALL DUE MEDS GIVEN ORDERED. SAFETY PRECAUTIONS MAINTAINED: CALL LIGHT AND TABLE WITHIN REACH, SIDE RAILS UP X 2, BED IN LOWEST LOCKED POSITION. ENDORSED TO MORNING SHIFT FOR EMILIA.
[2022-04-12 08:05] LABS: BASOPHILS # (AUTO) 0.1 K/uL (0.0-0.2); BASOPHILS % (AUTO) 0.5 % (0.0-2.0); EOSINOPHILS % (AUTO) 2.5 % (0.0-6.0); HEMATOCRIT 28 % (33-45); HEMOGLOBIN 9.4 g/dL (11.5-14.8); LYMPHOCYTES # (AUTO) 0.9 K/uL (0.8-4.8); LYMPHOCYTES % (AUTO) 8.3 % (20.0-44.0); MEAN CORPUSCULAR HGB CONC 34 g/dl (31.0-36.0); MEAN CORPUSCULAR VOLUME 91 fL (82-100); MONOCYTES # (AUTO) 0.9 K/uL (0.1-1.30); MONOCYTES % (AUTO) 7.5 % (2.0-12.0); NEUTROPHILS # (AUTO) 9.3 K/uL (1.8-8.9); NEUTROPHILS % (AUTO) 81.2 % (43.0-81.0); PLATELET COUNT (AUTO) 667 K/uL (150-450); RED BLOOD CELL COUNT(AUTO) 3.02 MIL/uL (4.0-5.2); WHITE BLOOD COUNT (AUTO) 11.4 K/uL (4.3-11.0)
--- NOTE | 2022-04-12 08:10 | NUR ---
NETWORK SUPPORT OPENING NOTE RECEIVED PATIENT IN BED; AWAKE, A/O X 4. STABLE ON ROOM AIR. REMAINED STABLE; IN NO ACUTE DISTRESS. NO C/O PAIN OR DISCOMFORT AT THIS TIME. ON TELEMETRY MONITORING WITH CURRENT READING OF SINUS RHYTHM WITH PACs HR-90'S BPM. WITH IV ACCESS ON LEFT WRIST 20G; PATENT AND INTACT INFUSING WITH NS RUNNING AT 100 ML/HR INFUSING WELL. WITH LEFT CHEST PIG TAIL CONNECTED TO CHEST TUBE ON WATER SEAL. SAFETY PRECAUTIONS MAINTAINED: CALL LIGHT AND TABLE WITHIN REACH, SIDE RAILS UP X 2, BED IN LOWEST LOCKED POSITION. WILL CONTINUE WITH PLAN OF CARE.
[2022-04-12 08:14] LABS: CALCIUM, SERUM 7.7 mg/dL (8.5-10.1); CARBON DIOXIDE 22 mmol/L (21-32); CHLORIDE 111 mmol/L (98-107); CREATININE 0.5 mg/dL (0.6-1.3); GLUCOSE 97 mg/dL (74-106); POTASSIUM 3.5 mmol/L (3.5-5.1); SODIUM SERUM 142 mmol/L (136-145); UREA NITROGEN, BLOOD 9 mg/dL (7-18)
[2022-04-12] MEDS: OXYBUTYNIN CHLORIDE 5 MG TABLET PO SCH ×3 (10:01→17:12)
[2022-04-12] MEDS: CITALOPRAM HYDROBROMIDE 20 MG TABLET PO SCH (10:01)
[2022-04-12] MEDS: HEPARIN SODIUM, PORCINE 5000 UNITS/1 ML VIAL SQ SCH ×2 (10:03→21:49)
[2022-04-12] MEDS: PILOCARPINE HCL 5 MG TABLET PO SCH (10:05)
[2022-04-12] MEDS: ENSURE ENLIVE 237 ML LIQUID (VANILLA) PO SCH ×2 (10:06→17:30)
[2022-04-12] MEDS: CALCIUM CARBONATE 500 MG TAB.CHEW PO PRN (10:32)
[2022-04-12] MEDS: VANCOMYCIN 0.75 GM in IV D5W 250 ML IV SCH (12:58)
[2022-04-12] MEDS: CEFEPIME 2 GM in IV D5W 100 ML IV SCH ×2 (15:41→23:08)
[2022-04-12] MEDS: Z GUARD REMEDY 4 OZ OINT TP SCH (15:57)
[2022-04-12] MEDS: METOPROLOL SUCCINATE 25 MG TAB.SR.24H PO SCH (18:57)
--- NOTE | 2022-04-12 19:06 | NUR ---
RAILWAY SIGNALLING ENGINEER CLOSING NOTE PATIENT IN BED; AWAKE, A/O X 4. STABLE ON ROOM AIR. REMAINED STABLE; IN NO ACUTE DISTRESS. NO C/O PAIN OR DISCOMFORT AT THIS TIME. ON TELEMETRY MONITORING WITH CURRENT READING OF SINUS RHYTHM WITH PACs HR-90'S BPM. WITH IV ACCESS ON LEFT WRIST 20G; PATENT AND INTACT INFUSING WITH NS RUNNING AT 100 ML/HR INFUSING WELL. WITH LEFT CHEST PIG TAIL CONNECTED TO CHEST TUBE ON WATER SEAL. WITH 200ML DRAINAGE NOTED THROUGHOUT THE SHIFT. SAFETY PRECAUTIONS MAINTAINED: CALL LIGHT AND TABLE WITHIN REACH, SIDE RAILS UP X 2, BED IN LOWEST LOCKED POSITION. REFUSED BODY CHECK OR CHANGE OF DRESSING ON THE SACRAL AREA. WILL CONTINUE WITH PLAN OF CARE.
--- NOTE | 2022-04-12 21:53 | NUR ---
ANTICOAGULANT H/H 9.08/20 PLT 667 No active bleeding. Heparin injection given, witnessed by ALANA Pryor.
[2022-04-12] MEDS: ZOLPIDEM TARTRATE 10 MG TABLET PO PRN (22:04)
[2022-04-13] VITALS: BP 158/99
[2022-04-13] MEDS: IV NS 0.9% 1,000 ML IV SCH ×3 (00:30→17:16)
[2022-04-13 00:39] VITALS: BP 158/99
[2022-04-13] MEDS: ACETAMINOPHEN 325 MG TABLET PO PRN (03:35)
[2022-04-13 05:53] VITALS: BP 173/81
--- NOTE | 2022-04-13 06:38 | NUR ---
END OF SHIFT REPORT Patient in bed, Alert Oriented x4. Stable in RA, maintaining Oxygen sat in high 90's. Sinus rhythm in the Tele monitor HR 100. Denies sob. IVF infusing, on IV abx. Afebrile. No acute distress during the shift. Left chest Pigtail drainage, no output throughout shift. Plan for tPA injection. Will endorse to oncoming RN.
[2022-04-13] MEDS: CEFEPIME 2 GM in IV D5W 100 ML IV SCH ×3 (06:40→21:20)
[2022-04-13 07:01] LABS: BASOPHILS # (AUTO) 0.1 K/uL (0.0-0.2); BASOPHILS % (AUTO) 1.1 % (0.0-2.0); EOSINOPHILS % (AUTO) 0.9 % (0.0-6.0); HEMATOCRIT 29 % (33-45); HEMOGLOBIN 9.4 g/dL (11.5-14.8); LYMPHOCYTES # (AUTO) 0.8 K/uL (0.8-4.8); LYMPHOCYTES % (AUTO) 6.2 % (20.0-44.0); MEAN CORPUSCULAR HGB CONC 33 g/dl (31.0-36.0); MEAN CORPUSCULAR VOLUME 93 fL (82-100); MONOCYTES # (AUTO) 0.8 K/uL (0.1-1.30); MONOCYTES % (AUTO) 6.6 % (2.0-12.0); NEUTROPHILS # (AUTO) 10.8 K/uL (1.8-8.9); NEUTROPHILS % (AUTO) 85.2 % (43.0-81.0); PLATELET COUNT (AUTO) 692 K/uL (150-450); RED BLOOD CELL COUNT(AUTO) 3.13 MIL/uL (4.0-5.2); WHITE BLOOD COUNT (AUTO) 12.7 K/uL (4.3-11.0)
[2022-04-13 07:09] LABS: CALCIUM, SERUM 7.5 mg/dL (8.5-10.1); CARBON DIOXIDE 20 mmol/L (21-32); CHLORIDE 111 mmol/L (98-107); CREATININE 0.5 mg/dL (0.6-1.3); GLUCOSE 103 mg/dL (74-106); POTASSIUM 3.6 mmol/L (3.5-5.1); SODIUM SERUM 141 mmol/L (136-145); UREA NITROGEN, BLOOD 9 mg/dL (7-18)
[2022-04-13 08:00] VITALS: BP 138/76
[2022-04-13] MEDS: Z GUARD REMEDY 4 OZ OINT TP SCH (08:37)
[2022-04-13] MEDS: HEPARIN SODIUM, PORCINE 5000 UNITS/1 ML VIAL SQ SCH (08:37)
[2022-04-13] MEDS: ENSURE ENLIVE 237 ML LIQUID (VANILLA) PO SCH ×2 (08:38→17:14)
[2022-04-13] MEDS: CITALOPRAM HYDROBROMIDE 20 MG TABLET PO SCH (08:38)
[2022-04-13] MEDS: OXYBUTYNIN CHLORIDE 5 MG TABLET PO SCH ×3 (08:38→17:15)
[2022-04-13] MEDS: PILOCARPINE HCL 5 MG TABLET PO SCH (08:39)
[2022-04-13] MEDS: VANCOMYCIN 0.75 GM in IV D5W 250 ML IV SCH (12:02)
[2022-04-13] MEDS ORDERED: ALTEPLASE CATHFLO IV ONE (15:00)
[2022-04-13] MEDS ORDERED: WATER FOR INJECTION STERILE IV ONE (15:00)
--- NOTE | 2022-04-13 15:00 | NUR ---
TPA ADMINISTERED BY DR SCHWARTZ. PER HIS INSTRUCTIONS CLAMP THE TUBING NOW AND UNCLAMPED IT AT 1900.
[2022-04-13 16:00] VITALS: BP 153/87
[2022-04-13] MEDS: CALCIUM CARBONATE 500 MG TAB.CHEW PO PRN (17:15)
--- NOTE | 2022-04-13 18:03 | NUR ---
END OF SHIFT SUMMARY PATIENT IS A/O X4, ON 02 AT 2 LPM VIA NC FOR SUPPORT. ABLE TO MAKE NEEDS KNOWN. SR ON TELEMONITOR. PUREWICK IN PLACE, INCONTINENCE CARE PROVIDED. IV ACCESS ON L WRIST #22G, NS AT 100 ML/HR, INTACT AND PATENT. SAFETY MEASURES MAINTAINED. BED IN LOWEST POSITION, BRAKES LOCKED. SIDE RAILS UP X2. CALL LIGHT WITHIN REACH. WILL ENDORSE CONTINUITY OF CARE TO ONCOMING SHIFT.
[2022-04-13] MEDS: METOPROLOL SUCCINATE 25 MG TAB.SR.24H PO SCH (18:06)
[2022-04-13 20:00] VITALS: BP 158/97
--- NOTE | 2022-04-13 20:06 | NUR ---
STOCK WORKER OPENING NOTE PATIENT AWAKE IN BED, ALERT/ORIENTED X 4, PT ABLE TO MAKE NEEDS KNOWN. PATIENT STABLE ON 2 LPM OF 02 VIA NASAL CANNULA, NO S/S OF DISTRESS OR SOB NOTED, BREATHING EVEN AND UNLABORED. PATIENT ON EXTERNAL PRIMARY TEACHING ASSISTANT READING SINUS RHYTHM, HR: 98. PATIENT WITH LEFT CHEST PIGTAIL CONNECTED TO SUCTION, OUTPUT CURRENTLY AT 1350 ML SHEILA AT THIS TIME, WILL CONTINUE TO MONITOR. PATIENT NOTED WITH PUREWICK, DRAINING YELLOW URINE. SAFETY MEASURES IN PLACE: CALL LIGHT WITHIN REACH, SIDE RAILS UP X 3, BED LOCKED IN LOWEST POSITION, HOB ELEVATED, BED ALARM ON. WILL CONTINUE TO MONITOR PATIENT
[2022-04-13] MEDS: ZOLPIDEM TARTRATE 10 MG TABLET PO PRN (21:21)
[2022-04-14] VITALS: BP 162/102
--- NOTE | 2022-04-14 01:18 | NUR ---
RESIDENTIAL SALES REPRESENTATIVE NOTE PATIENT'S BP 172/90, HR: 97. PATIENT HAS NO PRN BLOOD PRESSURE MEDICATIONS. CONTACTED ASSOCIATE PROFESSOR OF ENGINEERING MD LATANYA MATHUR WITH ORDER FOR HYDRALAZINE 10 MG IVP Q8H PRN FOR SBP > 160
[2022-04-14] MEDS ORDERED: hydrALAZINE HCL IV 20 MG VIAL IV PRN (01:30)
[2022-04-14] MEDS: IV NS 0.9% 1,000 ML IV SCH ×2 (04:01→14:57)
[2022-04-14] MEDS: CEFEPIME 2 GM in IV D5W 100 ML IV SCH ×3 (05:19→21:23)
--- NOTE | 2022-04-14 07:18 | NUR ---
SHOP CLERK CLOSING NOTE PATIENT AWAKE IN BED, ALERT/ORIENTED X 4, PT ABLE TO MAKE NEEDS KNOWN. PATIENT STABLE ON 2 LPM OF 02 VIA NASAL CANNULA PRN, NO S/S OF DISTRESS OR SOB NOTED, BREATHING EVEN AND UNLABORED. PATIENT ON EXTERNAL DINKEY DISPATCHER READING SINUS RHYTHM TO SINUS TACHY WITH PAC'S, HR: 111. PATIENT WITH LEFT CHEST PIGTAIL CONNECTED TO SUCTION, OUTPUT CURRENTLY AT 1430 ML SHEILA AT THIS TIME, OUTPUT OF 80 ML THIS SHIFT. PATIENT NOTED WITH PUREWICK, DRAINING YELLOW URINE, HYGIENE CARE PROVIDED AND NEW PUREWICK PLACED, OUTPUT OF 450 ML. NO SIGNIFICANT CHANGES THIS SHIFT, MEDICATIONS GIVEN ORDERED, PT NEEDS MET THROUGHOUT SHIFT. SAFETY MEASURES IN PLACE: CALL LIGHT WITHIN REACH, SIDE RAILS UP X 3, BED LOCKED IN LOWEST POSITION, HOB ELEVATED, BED ALARM ON. WILL ENDORSE TO DAYSHIFT RN FOR CONTINUITY OF CARE
[2022-04-14 07:34] VITALS: BP 151/86
[2022-04-14] MEDS: ENSURE ENLIVE 237 ML LIQUID (VANILLA) PO SCH ×2 (08:00→17:00)
[2022-04-14 08:02] LABS: BASOPHILS # (AUTO) 0.1 K/uL (0.0-0.2); BASOPHILS % (AUTO) 0.3 % (0.0-2.0); EOSINOPHILS % (AUTO) 0.1 % (0.0-6.0); HEMATOCRIT 32 % (33-45); HEMOGLOBIN 10.1 g/dL (11.5-14.8); LYMPHOCYTES # (AUTO) 0.7 K/uL (0.8-4.8); LYMPHOCYTES % (AUTO) 3.4 % (20.0-44.0); MEAN CORPUSCULAR HGB CONC 32 g/dl (31.0-36.0); MEAN CORPUSCULAR VOLUME 93 fL (82-100); MONOCYTES # (AUTO) 1.2 K/uL (0.1-1.30); MONOCYTES % (AUTO) 5.7 % (2.0-12.0); NEUTROPHILS # (AUTO) 18.8 K/uL (1.8-8.9); NEUTROPHILS % (AUTO) 90.5 % (43.0-81.0); PLATELET COUNT (AUTO) 753 K/uL (150-450); RED BLOOD CELL COUNT(AUTO) 3.41 MIL/uL (4.0-5.2); WHITE BLOOD COUNT (AUTO) 20.8 K/uL (4.3-11.0)
[2022-04-14 08:33] LABS: CALCIUM, SERUM 7.6 mg/dL (8.5-10.1); CREATININE 0.6 mg/dL (0.6-1.3); POTASSIUM 3.1 mmol/L (3.5-5.1)
--- NOTE | 2022-04-14 08:48 | NUR ---
WOOD PRESERVING PLANT LABORER NOTES PT SEEN AND EXAMINED BY DR. SCHWARTZ, NO COMPLAINT OF PAIN, NOT IN DISTRESS, CHEST TUBE TO LEFT SIDE CONNECTED TO WALL SUCTION.
[2022-04-14] MEDS: CITALOPRAM HYDROBROMIDE 20 MG TABLET PO SCH (09:50)
[2022-04-14] MEDS: ACETAMINOPHEN 325 MG TABLET PO PRN (09:50)
[2022-04-14] MEDS: PILOCARPINE HCL 5 MG TABLET PO SCH (09:53)
[2022-04-14] MEDS: OXYBUTYNIN CHLORIDE 5 MG TABLET PO SCH ×3 (09:55→17:15)
[2022-04-14] MEDS: POTASSIUM CHLORIDE 20 MEQ TAB.PRT.SR PO SCH ×2 (10:00→10:09)
[2022-04-14] MEDS: Z GUARD REMEDY 4 OZ OINT TP SCH (10:03)
[2022-04-14] MEDS: AMLODIPINE BESYLATE 5 MG TABLET PO SCH ×2 (10:26→17:15)
[2022-04-14] MEDS ORDERED: POTASSIUM CHLORIDE 20 MEQ POWDER PACKET PO SCH ×2 (11:00→13:00)
[2022-04-14] MEDS: METOPROLOL SUCCINATE 25 MG TAB.SR.24H PO SCH (18:38)
--- NOTE | 2022-04-14 19:00 | NUR ---
RN MS NOTES PT IN BED, AWAKE, ALERT AND ORIENTED, NO COMPLAINT AT THIS TIME, NOT IN DISTRESS, CHEST TUBE DRAINING WELL, OBTAINED 590 ML DURING THE SHIFT, PT SEEN BY DR. FREEMAN, PLAN OF CARE DISCUSSED WITH PT, VERBALIZED UNDERTANDING, DUE MEDS GIVEN, ALL NEEDS ATTENDED.
--- NOTE | 2022-04-14 19:30 | NUR ---
SPEEDER OPERATOR NOTES RECEIVED ON BED A/O X4,ON HIGH FOWLERS POSITION.A/O X4,BREATHING NON LABORED.DIMINISHED BREATH SOUND ON BOTL LOWER LUNG FIELD.S/P CHEST TUBE INSERTION ON 04/13 CONNECTED TO SUCTION FOR PLEURAL EFFUSION.INCONTINENT,ON PUREWICK COINNECTED TO WALL SUCTION.PRESENT IVF NS AT 100ML/HR RATE.INFUSING ON LEFT WRIST @22 VIA IV PUMP.SACRAL DTI WITH OIL EMULSION DRESSING IN PLACE.CALL LIGHT IN REACH,NEEDS ANTICIPATED.
[2022-04-14 20:00] VITALS: BP 141/71
[2022-04-14] MEDS: ZOLPIDEM TARTRATE 10 MG TABLET PO PRN (20:59)
--- NOTE | 2022-04-14 21:00 | NUR ---
MATZO FORMING MACHINE OPERATOR NOTES C/O INSOMNIA,AMBIEN 10MG PO GIVEN EARLY PER PATIENT REQUEST.VITAL SIGNS STABLE.
[2022-04-15] VITALS: BP 152/74
[2022-04-15] MEDS: IV NS 0.9% 1,000 ML IV SCH (01:56)
[2022-04-15 04:00] VITALS: BP 143/79
[2022-04-15] MEDS: CEFEPIME 2 GM in IV D5W 100 ML IV SCH ×3 (04:39→20:46)
--- NOTE | 2022-04-15 06:37 | NUR ---
R D INTERNSHIP NOTES SR 99 ON TELE MONITOR.SLEPT WELL AT NIGHT WITH AMBIEN 10MG.IVF IN PROGRESS.IV ABX ADMINISTERED,TOLERATED WELL.VITAL SIGNS STABLE.CALL LIGHT IN REACH,NEEDS ATTENDED.
[2022-04-15 07:36] LABS: CALCIUM, SERUM 7.6 mg/dL (8.5-10.1); CREATININE 0.7 mg/dL (0.6-1.3); POTASSIUM 3.6 mmol/L (3.5-5.1)
[2022-04-15 07:45] LABS: BASOPHILS # (AUTO) 0.1 K/uL (0.0-0.2); BASOPHILS % (AUTO) 0.3 % (0.0-2.0); EOSINOPHILS % (AUTO) 0.7 % (0.0-6.0); HEMATOCRIT 29 % (33-45); HEMOGLOBIN 9.5 g/dL (11.5-14.8); LYMPHOCYTES % (AUTO) 5.9 % (20.0-44.0); MEAN CORPUSCULAR HGB CONC 33 g/dl (31.0-36.0); MEAN CORPUSCULAR VOLUME 93 fL (82-100); MONOCYTES % (AUTO) 6.1 % (2.0-12.0); NEUTROPHILS # (AUTO) 14.1 K/uL (1.8-8.9); PLATELET COUNT (AUTO) 697 K/uL (150-450); RED BLOOD CELL COUNT(AUTO) 3.08 MIL/uL (4.0-5.2); WHITE BLOOD COUNT (AUTO) 16.2 K/uL (4.3-11.0)
[2022-04-15] MEDS: ENSURE ENLIVE 237 ML LIQUID (VANILLA) PO SCH ×2 (08:00→16:40)
--- NOTE | 2022-04-15 08:11 | NUR ---
STEAM FITTER HELPER OPENING NOTE PATIENT AWAKE IN BED, ALERT/ORIENTED X 4, PT ABLE TO MAKE NEEDS KNOWN. PATIENT is STABLE ON 2 LPM OF 02 VIA NASAL CANNULA, NO S/S OF DISTRESS OR SOB NOTED, BREATHING EVEN AND UNLABORED. PATIENT ON EXTERNAL BOOKKEEPER ASSISTANT READING SINUS RHYTHM, HR: 98. PATIENT WITH LEFT CHEST PIGTAIL CONNECTED TO SUCTION, OUTPUT CURRENTLY AT 450 ML SHEILA AT THIS TIME, WILL CONTINUE TO MONITOR. PATIENT NOTED WITH PUREWICK, DRAINING YELLOW URINE. SAFETY MEASURES IN PLACE: CALL LIGHT WITHIN REACH, SIDE RAILS UP X 3, BED LOCKED IN LOWEST POSITION, HOB ELEVATED, BED ALARM ON. WILL CONTINUE TO MONITOR PATIENT
[2022-04-15 08:16] VITALS: BP 149/80
[2022-04-15] MEDS: Z GUARD REMEDY 4 OZ OINT TP SCH (09:00)
[2022-04-15] MEDS: OXYBUTYNIN CHLORIDE 5 MG TABLET PO SCH ×3 (09:56→16:41)
[2022-04-15] MEDS: CALCIUM CARBONATE 500 MG TAB.CHEW PO PRN ×2 (09:56→16:42)
[2022-04-15] MEDS: CITALOPRAM HYDROBROMIDE 20 MG TABLET PO SCH (09:56)
[2022-04-15] MEDS: AMLODIPINE BESYLATE 5 MG TABLET PO SCH ×2 (09:57→16:41)
--- NOTE | 2022-04-15 10:31 | NUR ---
RN NOTE- PER DR SCHWARTZ, FLUSHED CHEST TUBE W 25CC NS. RECONNECTED AND SECURED. TOLERATED WELL
[2022-04-15] MEDS: PILOCARPINE HCL 5 MG TABLET PO SCH (10:58)
[2022-04-15 15:49] VITALS: BP 148/72
[2022-04-15] MEDS: METOPROLOL SUCCINATE 25 MG TAB.SR.24H PO SCH (16:43)
--- NOTE | 2022-04-15 18:52 | NUR ---
BROACHER CLOSING NOTE PATIENT AWAKE IN BED, ALERT/ORIENTED X 4, PT ABLE TO MAKE NEEDS KNOWN. PATIENT STABLE ON 2 LPM OF 02 VIA NASAL CANNULA PRN, NO S/S OF DISTRESS OR SOB NOTED, BREATHING EVEN AND UNLABORED. PATIENT ON EXTERNAL SENIOR SOLUTIONS ENGINEER READING SINUS TACHY TO ATRIAL FIBRILLATION IN THE 110s.. PATIENT WITH LEFT CHEST PIGTAIL CONNECTED TO SUCTION, OUTPUT CURRENTLY AT 650 ML SHEILA AT THIS TIME, OUTPUT OF 200 ML THIS SHIFT. PATIENT NOTED WITH PUREWICK, DRAINING YELLOW URINE, HYGIENE CARE PROVIDED AND NEW PUREWICK PLACED, OUTPUT OF 300 ML. NO SIGNIFICANT CHANGES THIS SHIFT, MEDICATIONS GIVEN ORDERED, PT NEEDS MET THROUGHOUT SHIFT. SAFETY MEASURES IN PLACE: CALL LIGHT WITHIN REACH, SIDE RAILS UP X 3, BED LOCKED IN LOWEST POSITION, HOB ELEVATED, BED ALARM ON. WILL ENDORSE TO DAYSHIFT RN FOR CONTINUITY OF CARE
[2022-04-15 20:00] VITALS: BP 122/60
--- NOTE | 2022-04-15 20:09 | NUR ---
RUNNING SPECIALIST OPENING NOTE PATIENT AWAKE IN BED, ALERT/ORIENTED X 4, PT ABLE TO MAKE NEEDS KNOWN. PATIENT STABLE ON 2 LPM OF 02 VIA NASAL CANNULA PRN, NO S/S OF DISTRESS OR SOB NOTED, BREATHING EVEN AND UNLABORED. PATIENT ON EXTERNAL BALL THREAD MACHINE TENDER.. PATIENT WITH LEFT CHEST PIGTAIL CONNECTED TO SUCTION, OUTPUT CURRENTLY AT 650 ML SHEILA AT THIS TIME. PATIENT NOTED WITH PUREWICK, DRAINING YELLOW URINE. PT NEEDS MET THROUGHOUT SHIFT. SAFETY MEASURES IN PLACE: CALL LIGHT WITHIN REACH, SIDE RAILS UP X 3, BED LOCKED IN LOWEST POSITION, HOB ELEVATED, BED ALARM ON.
[2022-04-15] MEDS: ZOLPIDEM TARTRATE 10 MG TABLET PO PRN (20:46)
[2022-04-16] VITALS: BP 150/69
[2022-04-16] MEDS: CEFEPIME 2 GM in IV D5W 100 ML IV SCH ×3 (05:04→20:23)
--- NOTE | 2022-04-16 06:39 | NUR ---
SPEECH LANG PATH CLOSING NOTE PATIENT AWAKE IN BED, ALERT/ORIENTED X 4, PT ABLE TO MAKE NEEDS KNOWN. PATIENT STABLE ON 2 LPM OF 02 VIA NASAL CANNULA PRN, NO S/S OF DISTRESS OR SOB NOTED, BREATHING EVEN AND UNLABORED. PATIENT ON EXTERNAL LEVERS LACE MACHINE OPERATOR.. PATIENT WITH LEFT CHEST PIGTAIL CONNECTED TO SUCTION, OUTPUT CURRENTLY AT 700 ML SHEILA AT THIS TIME. TOTAL OUTPUT FORT SHIFT WAS 50CC. PATIENT NOTED WITH PUREWICK, DRAINING YELLOW URINE 600CC . PT NEEDS MET THROUGHOUT SHIFT. SAFETY MEASURES IN PLACE: CALL LIGHT WITHIN REACH, SIDE RAILS UP X 3, BED LOCKED IN LOWEST POSITION, HOB ELEVATED, BED ALARM ON. WILL ENDORSE CARE TO DAY SHIFT NURSE.
[2022-04-16 06:47] LABS: BASOPHILS # (AUTO) 0.1 K/uL (0.0-0.2); BASOPHILS % (AUTO) 0.7 % (0.0-2.0); EOSINOPHILS % (AUTO) 1.4 % (0.0-6.0); HEMATOCRIT 29 % (33-45); HEMOGLOBIN 9.3 g/dL (11.5-14.8); LYMPHOCYTES # (AUTO) 1.1 K/uL (0.8-4.8); LYMPHOCYTES % (AUTO) 6.2 % (20.0-44.0); MEAN CORPUSCULAR HGB CONC 33 g/dl (31.0-36.0); MEAN CORPUSCULAR VOLUME 93 fL (82-100); MONOCYTES # (AUTO) 0.9 K/uL (0.1-1.30); MONOCYTES % (AUTO) 5.2 % (2.0-12.0); NEUTROPHILS # (AUTO) 15.3 K/uL (1.8-8.9); NEUTROPHILS % (AUTO) 86.5 % (43.0-81.0); PLATELET COUNT (AUTO) 738 K/uL (150-450); RED BLOOD CELL COUNT(AUTO) 3.07 MIL/uL (4.0-5.2); WHITE BLOOD COUNT (AUTO) 17.8 K/uL (4.3-11.0)
--- NOTE | 2022-04-16 07:00 | NUR ---
RN NOTE- PER DR SCHWARTZ, FLUSHED CHEST TUBE W 25CC NS. RECONNECTED AND SECURED. TOLERATED WELL
[2022-04-16] MEDS: ENSURE ENLIVE 237 ML LIQUID (VANILLA) PO SCH ×2 (08:00→17:00)
--- NOTE | 2022-04-16 08:20 | NUR ---
PICKET LABOR UNION OPENING NOTE PATIENT AWAKE IN BED, ALERT/ORIENTED X 4, PT ABLE TO MAKE NEEDS KNOWN. PATIENT is STABLE ON 2 LPM OF 02 VIA NASAL CANNULA, NO S/S OF DISTRESS OR SOB NOTED, BREATHING EVEN AND UNLABORED. PATIENT ON EXTERNAL UNDERWATER HUNTER TRAPPER READING SINUS TACHYCARDIA RHYTHM, HR: 109 PATIENT WITH LEFT CHEST PIGTAIL CONNECTED TO SUCTION, OUTPUT CURRENTLY AT 740 ML SHEILA AT THIS TIME, WILL CONTINUE TO MONITOR. PORTABLR CXR COMPLETED AND SHOWS LESS FLUID THAN YESTERDAY'S CXR.PATIENT NOTED WITH PUREWICK, DRAINING YELLOW URINE. LS CLEAR TO AUSCULTATION. BS POSITIVE. SAFETY MEASURES IN PLACE: CALL LIGHT WITHIN REACH, SIDE RAILS UP X 3, BED LOCKED IN LOWEST POSITION, HOB ELEVATED, BED ALARM ON. WILL CONTINUE TO MONITOR PATIENT
[2022-04-16 08:39] VITALS: BP 156/66
[2022-04-16] MEDS: Z GUARD REMEDY 4 OZ OINT TP SCH (09:00)
[2022-04-16] MEDS: CITALOPRAM HYDROBROMIDE 20 MG TABLET PO SCH (10:05)
[2022-04-16] MEDS: PILOCARPINE HCL 5 MG TABLET PO SCH (10:07)
[2022-04-16] MEDS: OXYBUTYNIN CHLORIDE 5 MG TABLET PO SCH ×3 (10:07→17:36)
[2022-04-16] MEDS: AMLODIPINE BESYLATE 5 MG TABLET PO SCH ×2 (10:07→17:36)
--- NOTE | 2022-04-16 11:00 | NUR ---
RN NOTE- DR SCHWARTZ ORDERED CT TO BE FLUSHED W 25CC NS ON AM SHIFT AND 25CC NS ON PM SHIFT.
[2022-04-16] MEDS: ENSURE CLEAR 237 ML LIQUID (MIX BERRY) PO SCH ×2 (12:33→17:30)
[2022-04-16] MEDS: ACETAMINOPHEN 325 MG TABLET PO PRN (15:49)
[2022-04-16 16:38] VITALS: BP 142/87
[2022-04-16] MEDS: CALCIUM CARBONATE 500 MG TAB.CHEW PO PRN (17:36)
[2022-04-16] MEDS: METOPROLOL SUCCINATE 25 MG TAB.SR.24H PO SCH (17:37)
--- NOTE | 2022-04-16 18:40 | NUR ---
RN NOTE- PT C/O NAUSEA. DR CURTIS - LEAD INSTRUCTOR/FLIGHT ATTENDANT MD ORDERED ZOFRAN 4MG Q6H PRN. COMPLIED
[2022-04-16] MEDS ORDERED: ONDANSETRON HCL/PF 4 MG/2 ML VIAL IV PRN (19:00)
--- NOTE | 2022-04-16 19:01 | NUR ---
ESTATE PLANNING PARALEGAL CLOSING NOTE PATIENT AWAKE IN BED, ALERT/ORIENTED X 4, PT ABLE TO MAKE NEEDS KNOWN. PATIENT STABLE ON 2 LPM OF 02 VIA NASAL CANNULA PRN, NO S/S OF DISTRESS OR SOB NOTED, BREATHING EVEN AND UNLABORED. PATIENT ON EXTERNAL PROGRAM DIRECTOR SCOUTING READING SINUS TACHY TO ATRIAL FIBRILLATION IN THE 110s.. PATIENT WITH LEFT CHEST PIGTAIL CONNECTED TO SUCTION, OUTPUT CURRENTLY AT 800 ML SHEILA AT THIS TIME, OUTPUT OF 60 ML THIS SHIFT. PATIENT NOTED WITH PUREWICK, DRAINING YELLOW URINE, HYGIENE CARE PROVIDED AND NEW PUREWICK PLACED, OUTPUT OF 300 ML. NO SIGNIFICANT CHANGES THIS SHIFT, MEDICATIONS GIVEN ORDERED, PT NEEDS MET THROUGHOUT SHIFT. SAFETY MEASURES IN PLACE: CALL LIGHT WITHIN REACH, SIDE RAILS UP X 3, BED LOCKED IN LOWEST POSITION, HOB ELEVATED, BED ALARM ON. WILL ENDORSE TO DAYSHIFT RN FOR CONTINUITY OF CARE
--- NOTE | 2022-04-16 19:20 | NUR ---
RN opening notes Pt is sitting in bed comfortably. Pt is alert and orientedX4. On 2 L NC. No SOB. No S/S of distress noted. Tele monitor showed afib. IV site at LFA# 22 is clean, intact, flushes well and SL. L chest pigtail is intact, dry and clean and connect to suction with output 800 ml. Safety precautions is maintained. bed at low position, brakes locked, side rails upX3, hob elevated, bed alarm is on and call light is within reach. Will continue to monitor.
[2022-04-16 20:00] VITALS: BP 132/67
[2022-04-16 20:07] VITALS: BP 132/67
[2022-04-16] MEDS: ZOLPIDEM TARTRATE 10 MG TABLET PO PRN (20:50)
--- NOTE | 2022-04-16 20:54 | NUR ---
RN notes Pt is requesting a sleeping pill. administered ambien 10mg/po/prn as ordered for sleeping. Safety precautions is maintained. will continue to monitor.
[2022-04-17] VITALS: BP 136/55
[2022-04-17 00:42] VITALS: BP 136/55
--- NOTE | 2022-04-17 02:00 | NUR ---
Rn closing notes Pt is resting in bed comfortably. Pt is alert and orientedX4. On 2 L NC. No SOB. No S/s of distress noted. IV site at LFA# 22 is clean, intact and SL. Tele monitor showed SR hr at 93. L chest pigtail is intact and inplaced and connected to suction. VS is stable. afebrile. Routine meds were given as ordered. Kept Pt clean, dry and comfortable. Safety precautions is maintained. Will endorse to Alone, RN for EMILIA.
--- NOTE | 2022-04-17 02:41 | NUR ---
Care endorsed by ALANA Patino. Patient in bed, no acute distress.
[2022-04-17 04:18] VITALS: BP 124/53
[2022-04-17] MEDS: CEFEPIME 2 GM in IV D5W 100 ML IV SCH ×3 (05:11→20:50)
--- NOTE | 2022-04-17 06:29 | NUR ---
END OF SHIFT REPORT Patient in bed, Alert Oriented x4. Sinus rhythm in the Tele monitor HR 86. On IV abx. Afebrile. Left chest Pigtail to suction. Output 130ml purulent. Denies chest pain, no c/o N/V. No acute distress during the shift. Will endorse to oncoming RN.
[2022-04-17 06:48] LABS: BASOPHILS # (AUTO) 0.1 K/uL (0.0-0.2); BASOPHILS % (AUTO) 0.7 % (0.0-2.0); EOSINOPHILS % (AUTO) 2.6 % (0.0-6.0); HEMATOCRIT 25 % (33-45); HEMOGLOBIN 8.2 g/dL (11.5-14.8); LYMPHOCYTES # (AUTO) 0.8 K/uL (0.8-4.8); LYMPHOCYTES % (AUTO) 6.4 % (20.0-44.0); MEAN CORPUSCULAR HGB CONC 33 g/dl (31.0-36.0); MEAN CORPUSCULAR VOLUME 94 fL (82-100); MONOCYTES # (AUTO) 0.9 K/uL (0.1-1.30); MONOCYTES % (AUTO) 7.1 % (2.0-12.0); NEUTROPHILS # (AUTO) 10.3 K/uL (1.8-8.9); NEUTROPHILS % (AUTO) 83.2 % (43.0-81.0); PLATELET COUNT (AUTO) 551 K/uL (150-450); RED BLOOD CELL COUNT(AUTO) 2.65 MIL/uL (4.0-5.2); WHITE BLOOD COUNT (AUTO) 12.3 K/uL (4.3-11.0)
[2022-04-17 07:00] VITALS: BP 142/71
--- NOTE | 2022-04-17 07:55 | NUR ---
RN OPENING NOTE RECEIVED PATIENT IN BED, AO X 4. ABLE TO RESPONDS ALL STIMULI. RESPIRATORY EVEN AND UNLABORED WITH OXYGEN AT 2Ls VIA NC. IN NO ACUTE DISTRESS OBSERVED. SKIN IS WARM TO TOUCH, KEEP CLEAN/DRY. KEPT ELEVATED HOB FOR ASPIRATION PRECAUTION/ENSURE AIRWAY, AND LOWEST BED POSITIONED. BED ALARM IS ON AT ALL THE TIME FOR SAFETY. CALL LIGHT WITHIN REACH, WILL CONTINUE TO MONITOR
[2022-04-17] MEDS: ENSURE ENLIVE 237 ML LIQUID (VANILLA) PO SCH (08:00)
[2022-04-17] MEDS: OXYBUTYNIN CHLORIDE 5 MG TABLET PO SCH ×3 (08:53→17:06)
[2022-04-17] MEDS: AMLODIPINE BESYLATE 5 MG TABLET PO SCH ×2 (08:53→17:07)
[2022-04-17] MEDS: CITALOPRAM HYDROBROMIDE 20 MG TABLET PO SCH (08:53)
[2022-04-17] MEDS: ENSURE CLEAR 237 ML LIQUID (MIX BERRY) PO SCH ×3 (08:54→18:15)
[2022-04-17] MEDS: PILOCARPINE HCL 5 MG TABLET PO SCH (09:06)
[2022-04-17] MEDS: Z GUARD REMEDY 4 OZ OINT TP SCH (09:07)
--- NOTE | 2022-04-17 18:05 | NUR ---
RN CLOSING NOTE PATIENT RESTING IN BED. IN NO ACUTE DISTRESS OBSERVED. RESPIRATORY EVEN AND UNLABORED ON OXYGEN AT 2Ls VIA NC. 170 CC OUTPUT FROM Lt-CHEST/PIGTAIL CATH. SKIN IS WARM TO TOUCH KEEP CLEAN/DRY. PROVIDED SKI CARE. KEPT ELEVATED HOB FOR ENSURE AIRWAY/ASPIRATION PRECAUTION, AND LOWEST BED POSITION. BED ALARM IS ON AT ALL THE TIME FOR SAFETY. CALL LIGHT WITHIN REACH, WILL ENDORSE COMPUTER ANALYST SUPERVISOR.
[2022-04-17] MEDS: METOPROLOL SUCCINATE 25 MG TAB.SR.24H PO SCH (18:15)
--- NOTE | 2022-04-17 19:30 | NUR ---
INSULATION PACKER NOTES RECEIVED ON BED A/O X4,ABLE TO VERBALIZED NEEDS,BREATHING NON LABORED,WITH LEFT PIGTAIL ON THE LEFT TO CONTINUOS LOW SUCTION,ON PUREWICK TO LIS,DRAINS YELLOWISH URINE OUTPUT.DRESSING TO SACRAL AREA INTACT AND DRY.WILL REPOSITION PER PROTOCOL.CALL LIGHT IN REACH,NEEDS ANTICIPATED.
[2022-04-17 20:00] VITALS: BP 125/69
[2022-04-17] MEDS: ZOLPIDEM TARTRATE 10 MG TABLET PO PRN (21:08)
--- NOTE | 2022-04-17 21:08 | NUR ---
POST DOCTORAL RESEARCHER NOTES C/O INSOMNIA,AMBIEN 10MG PO GIVEN PER PATIENT REQUEST.
[2022-04-18] VITALS: BP 146/65
[2022-04-18 04:00] VITALS: BP 146/66
[2022-04-18] MEDS: CEFEPIME 2 GM in IV D5W 100 ML IV SCH ×3 (04:31→20:51)
[2022-04-18 06:40] LABS: BASOPHILS # (AUTO) 0.1 K/uL (0.0-0.2); BASOPHILS % (AUTO) 0.6 % (0.0-2.0); EOSINOPHILS % (AUTO) 1.7 % (0.0-6.0); HEMATOCRIT 23 % (33-45); HEMOGLOBIN 7.8 g/dL (11.5-14.8); LYMPHOCYTES # (AUTO) 0.7 K/uL (0.8-4.8); LYMPHOCYTES % (AUTO) 6.3 % (20.0-44.0); MEAN CORPUSCULAR HGB CONC 33 g/dl (31.0-36.0); MEAN CORPUSCULAR VOLUME 93 fL (82-100); MONOCYTES # (AUTO) 0.7 K/uL (0.1-1.30); MONOCYTES % (AUTO) 5.6 % (2.0-12.0); NEUTROPHILS # (AUTO) 9.9 K/uL (1.8-8.9); NEUTROPHILS % (AUTO) 85.8 % (43.0-81.0); PLATELET COUNT (AUTO) 541 K/uL (150-450); RED BLOOD CELL COUNT(AUTO) 2.52 MIL/uL (4.0-5.2); WHITE BLOOD COUNT (AUTO) 11.6 K/uL (4.3-11.0)
--- NOTE | 2022-04-18 07:08 | NUR ---
MS RN NOTES NO SIGNIFICANT CHANGE IN STATUS.SLEEP WELL WITH AMBIEN 10MG PO.CHEST TUBE OUTPUT 50ML,IRRIGATE WITH NS 25ML ORDERED FOR PATENCY.NO SOB NOTED.CALL LIGHT IN REACH,NEEDS ATTENDED.
--- NOTE | 2022-04-18 07:30 | NUR ---
RN Opening Note Patient AOx4 able to express her concerns. No signs of distress or discomfort. IV access with no signs of infiltration, no pain reported with touch. All safety precautions taken. Will continue to monitor and administer care as needed. Bed at lowest position, locked, table and call light within reach.
[2022-04-18 07:36] LABS: CALCIUM, SERUM 8.1 mg/dL (8.5-10.1); POTASSIUM 3.4 mmol/L (3.5-5.1)
[2022-04-18] MEDS: ACETAMINOPHEN 325 MG TABLET PO PRN ×2 (07:36→14:44)
[2022-04-18 08:00] VITALS: BP 149/85
[2022-04-18] MEDS: CITALOPRAM HYDROBROMIDE 20 MG TABLET PO SCH (08:24)
[2022-04-18] MEDS: AMLODIPINE BESYLATE 5 MG TABLET PO SCH ×2 (08:24→16:38)
[2022-04-18] MEDS: ENSURE CLEAR 237 ML LIQUID (MIX BERRY) PO SCH ×3 (08:25→16:38)
[2022-04-18] MEDS: Z GUARD REMEDY 4 OZ OINT TP SCH (08:29)
[2022-04-18] MEDS: OXYBUTYNIN CHLORIDE 5 MG TABLET PO SCH ×3 (08:34→16:38)
[2022-04-18] MEDS: PILOCARPINE HCL 5 MG TABLET PO SCH (08:34)
[2022-04-18] MEDS ORDERED: POTASSIUM CHLORIDE 20 MEQ TAB.PRT.SR PO SCH (11:00)
[2022-04-18 12:00] VITALS: BP 138/72
[2022-04-18 16:18] VITALS: BP 116/67
[2022-04-18] MEDS: METOPROLOL SUCCINATE 25 MG TAB.SR.24H PO SCH (17:37)
--- NOTE | 2022-04-18 18:07 | NUR ---
RN Closing Note Patient AOx4 able to express her concerns,. PAtient made aware of plan of care and verbalized agreement. Patient remained safe throughout shift, needs attended to, care provided and medications administered as prescribed. All safety precautions taken, call light and table within reach, bed at lowest position. Will endorse report to night nurse for continuity of care.
[2022-04-18 20:00] VITALS: BP 129/63
--- NOTE | 2022-04-18 20:30 | NUR ---
MATERNITY NURSE OPENING NOTE RECEIVED PATIENT AWAKE IN BED, IN FOWLERS POSITION. AO X 4. ABLE TO RESPONDS ALL STIMULI. RESPIRATORY EVEN AND UNLABORED WITH OXYGEN AT 2L VIA NC. BREATHING EVEN AND UNLABORED. IN NO ACUTE DISTRESS OBSERVED. KEPT ELEVATED HOB FOR ASPIRATION PRECAUTION/ENSURE AIRWAY. NOTED PIGTAIL AT LEFT LATERAL LUNG ATTACHED TO ATRIUM, SUCTION SET TO -30. WITH OUTPUT LEVEL AT 1380ML, ON CONT LOW SUCTION. INSERTION SITE CHECKED. NO SIGNS OF REDNESS OR BLEEDING. SAFETY MEASURES MAINTAINED. WILL CONTINUE TO MONITOR. Addendum: 04/18/22 at 2223 by VINH PETERSON RN TELE MONITOR READS SINUS RHYTHM WITH PAC, HR 78
[2022-04-18] MEDS: ZOLPIDEM TARTRATE 10 MG TABLET PO PRN (20:52)
[2022-04-19] VITALS: BP 129/61
[2022-04-19 04:00] VITALS: BP 142/67
[2022-04-19] MEDS: CEFEPIME 2 GM in IV D5W 100 ML IV SCH ×3 (05:31→20:44)
[2022-04-19 06:22] LABS: BASOPHILS # (AUTO) 0.1 K/uL (0.0-0.2); BASOPHILS % (AUTO) 0.6 % (0.0-2.0); EOSINOPHILS % (AUTO) 2.2 % (0.0-6.0); HEMATOCRIT 23 % (33-45); HEMOGLOBIN 7.6 g/dL (11.5-14.8); LYMPHOCYTES # (AUTO) 0.9 K/uL (0.8-4.8); LYMPHOCYTES % (AUTO) 7.8 % (20.0-44.0); MEAN CORPUSCULAR HGB CONC 33 g/dl (31.0-36.0); MEAN CORPUSCULAR VOLUME 93 fL (82-100); MONOCYTES # (AUTO) 0.8 K/uL (0.1-1.30); MONOCYTES % (AUTO) 6.8 % (2.0-12.0); NEUTROPHILS # (AUTO) 9.5 K/uL (1.8-8.9); NEUTROPHILS % (AUTO) 82.6 % (43.0-81.0); PLATELET COUNT (AUTO) 510 K/uL (150-450); RED BLOOD CELL COUNT(AUTO) 2.48 MIL/uL (4.0-5.2); WHITE BLOOD COUNT (AUTO) 11.6 K/uL (4.3-11.0)
--- NOTE | 2022-04-19 06:57 | NUR ---
SUCTION WORKER CLOSING NOTE PATIENT AWAKE IN BED, IN FOWLERS POSITION. AO X 4. ABLE TO RESPONDS ALL STIMULI. RESPIRATORY EVEN AND UNLABORED WITH OXYGEN AT 2L VIA NC. BREATHING EVEN AND UNLABORED. IN NO ACUTE DISTRESS OBSERVED. KEPT ELEVATED HOB FOR ASPIRATION PRECAUTION/ENSURE AIRWAY. NOTED PIGTAIL AT LEFT LATERAL LUNG ATTACHED TO ATRIUM, SUCTION SET TO -30. CHEST TUBE FLUSHING FOR PATENCY DONE (25ML+50ML).WITH OUTPUT LEVEL AT 1470, ON CONT LOW SUCTION. INSERTION SITE CHECKED. NO SIGNS OF REDNESS OR BLEEDING. SAFETY MEASURES MAINTAINED. WILL ENDORSE TO NEXT SHIFT RN FOR EMILIA.
--- NOTE | 2022-04-19 07:53 | NUR ---
RN Opening Report Patient AOx4 able to express her own concerns. Patient in bed sitting in high fowlers position. Patient made aware of plan of care and verbalized agreement. States no need at the moment and no discomfort. No signs of distress or discomfort, no sign of IV infiltration, no respiratory distress. All safety precautions taken, call light and table within reach, bed at lowest position. Will continue to round and monitor throughout shift.
[2022-04-19 08:22] VITALS: BP 123/79
[2022-04-19] MEDS: OXYBUTYNIN CHLORIDE 5 MG TABLET PO SCH ×3 (09:21→16:48)
[2022-04-19] MEDS: CITALOPRAM HYDROBROMIDE 20 MG TABLET PO SCH (09:21)
[2022-04-19] MEDS: ENSURE CLEAR 237 ML LIQUID (MIX BERRY) PO SCH ×3 (09:22→16:48)
[2022-04-19] MEDS: Z GUARD REMEDY 4 OZ OINT TP SCH (09:23)
[2022-04-19] MEDS: AMLODIPINE BESYLATE 5 MG TABLET PO SCH ×2 (09:29→16:48)
[2022-04-19] MEDS: PILOCARPINE HCL 5 MG TABLET PO SCH (09:30)
[2022-04-19] MEDS ORDERED: HYDROCODONE/APAP 10/325MG TABLET PO PRN (13:00)
[2022-04-19] MEDS ORDERED: HYDROCODONE/APAP 5/325MG TABLET PO PRN (13:00)
[2022-04-19 16:00] VITALS: BP 122/60
[2022-04-19] MEDS: METOPROLOL SUCCINATE 25 MG TAB.SR.24H PO SCH (17:32)
--- NOTE | 2022-04-19 18:22 | NUR ---
RN Closing Note Patient AO x4 able to express her own concerns. Patient with no signs of distress or discomfort. Remained safe throughout shift. Patient made aware of plan of care and the need to monitor drainage now that Chest tube is clamped, verbalized agreement. Care provided as needed, needs attended to, and medications administered as prescribes. All safety precautions taken, call light and table within reach, bed at lowest position. Will endorse to night nurse for continuity of care.
--- NOTE | 2022-04-19 19:50 | NUR ---
RN Opening Note Patient AO x4 able to express her own concerns. Patient with no signs of distress or discomfort. Patient made aware of plan of care and the need to monitor drainage now that Chest tube is clamped, verbalized agreement. Care provided as needed, needs attended to. All safety precautions taken, call light and table within reach, bed at lowest position. Addendum: 04/20/22 at 0640 by NABILA YA RN a/o x2
[2022-04-19 20:00] VITALS: BP 132/61
[2022-04-20 01:48] VITALS: BP 134/48
[2022-04-20 04:00] VITALS: BP 126/57
[2022-04-20] MEDS: CEFEPIME 2 GM in IV D5W 100 ML IV SCH ×3 (04:16→20:30)
--- NOTE | 2022-04-20 05:05 | NUR ---
RN NOTE noted pt with edema around iv site . iv removed catheter intact. hand elevated ice pack applied.
--- NOTE | 2022-04-20 06:08 | NUR ---
RN Note Patient AO x3-4 able to express her own concerns. Patient. Patient chest tube remains clamped at this time.Care provided as needed, needs attended to. All safety precautions taken, call light and table within reach, bed at lowest position.pt for picc line insertion today. currently with no iv access attempt were unsuccessful will endorse to day shift nurse. ice pack still on arm to reduce hand edema. Addendum: 04/20/22 at 0640 by NABILA YA RN a/ox2
--- NOTE | 2022-04-20 06:25 | NUR ---
MOLD STRIPPER OPENING NOTES RECEIVED PATIENT, OPENS EYES, LETHARGIC, UNABLE TO FOLLOW FOLLOW COMMANDS, INCOMPREHENSIBLE WORDS. ON 2LPM VIA NC, BREATHING EVEN, NO SOB NOTED. PATIENT HAS LEFT CHEST TUBE CLAMPED, NO DRAINAGE NOTED. NO IV ACCESS DURING THIS TIME. PATIENT FOR PICC LINE INSERTION. PPATIENT VITAL SIGNS STABLE, ON TELEMONITORING SHOWING SR WITH PACS AND PJCS WITH 98 BPM. PATIENT HAS PUREWICK DRAINING PALE YELLOW URINE. SAFETY MEASURES IN PLACE: BED LOCKED AND IN LOWEST POSITION, SIDE RAILS 3X, TRAY TABLE AND CALL LIGHT WITHIN EASY REACH. MD IS AWARE OF THE CHANGE IN LOC. WILL CONTINUE TO MONITOR.
[2022-04-20 07:12] LABS: BASOPHILS # (AUTO) 0.1 K/uL (0.0-0.2); BASOPHILS % (AUTO) 0.7 % (0.0-2.0); EOSINOPHILS % (AUTO) 1.9 % (0.0-6.0); HEMATOCRIT 22 % (33-45); HEMOGLOBIN 7.3 g/dL (11.5-14.8); LYMPHOCYTES # (AUTO) 0.7 K/uL (0.8-4.8); LYMPHOCYTES % (AUTO) 6.3 % (20.0-44.0); MEAN CORPUSCULAR HGB CONC 33 g/dl (31.0-36.0); MEAN CORPUSCULAR VOLUME 97 fL (82-100); MONOCYTES # (AUTO) 0.7 K/uL (0.1-1.30); MONOCYTES % (AUTO) 6.5 % (2.0-12.0); NEUTROPHILS # (AUTO) 9.2 K/uL (1.8-8.9); NEUTROPHILS % (AUTO) 84.6 % (43.0-81.0); PLATELET COUNT (AUTO) 435 K/uL (150-450); RED BLOOD CELL COUNT(AUTO) 2.31 MIL/uL (4.0-5.2); WHITE BLOOD COUNT (AUTO) 10.9 K/uL (4.3-11.0)
[2022-04-20 07:29] LABS: CALCIUM, SERUM 7.6 mg/dL (8.5-10.1); CARBON DIOXIDE 15 mmol/L (21-32); CHLORIDE 110 mmol/L (98-107); CREATININE 1.5 mg/dL (0.6-1.3); GLUCOSE 108 mg/dL (74-106); POTASSIUM 3.5 mmol/L (3.5-5.1); SODIUM SERUM 133 mmol/L (136-145); UREA NITROGEN, BLOOD 40 mg/dL (7-18)
[2022-04-20 08:00] VITALS: BP 121/44
[2022-04-20] MEDS: ENSURE CLEAR 237 ML LIQUID (MIX BERRY) PO SCH ×3 (08:00→16:11)
[2022-04-20] MEDS: OXYBUTYNIN CHLORIDE 5 MG TABLET PO SCH ×3 (09:00→16:11)
[2022-04-20] MEDS: CITALOPRAM HYDROBROMIDE 20 MG TABLET PO SCH (09:00)
[2022-04-20] MEDS: AMLODIPINE BESYLATE 5 MG TABLET PO SCH ×2 (09:00→16:11)
[2022-04-20] MEDS: Z GUARD REMEDY 4 OZ OINT TP SCH (09:00)
[2022-04-20] MEDS: PILOCARPINE HCL 5 MG TABLET PO SCH (09:00)
--- NOTE | 2022-04-20 09:15 | NUR ---
RN NOTES - CHANGE OF CONDITION REPORTED TO DR JAY BREWER PATIENT IS NOTED TO BE AOX1 ONLY, DOESNT FOLLOW COMMANDS, WITH [facility] OF 9, FAILED NURSING SWALLOW EVAL. DR BREWER ORDERED HEAD CT STAT, CARRIED OUT. WILL FOLLOW UP WITH THE PICC LINE INSERTION TODAY WELL. WILL CONTINUE TO MONITOR.
--- NOTE | 2022-04-20 10:00 | NUR ---
RN NOTES - CHEST TUBE REMOVED DR SCHWARTZ AT BEDSIDE, REMOVED L CHEST TUBE, NO BLEEDING NOTED, COVERED WITH VASELINIZED GAUZE AND TAPE. WILL CONTINUE TO MONITOR.
--- NOTE | 2022-04-20 11:27 | NUR ---
STILL AWAITING Z GUARD REFILL FROM PHARMACY
[2022-04-20 11:55] LABS: ABG BASE EXCESS -10.1 mmol/L; ABG OXYGEN SATURATION 95.9 % (92.0-98.5); ABG PCO2 28.7 mmHg (35.0-45.0); ABG PO2 88.3 mmHg (75.0-100.0); AaDO2 77.5 mmHg; COHb 0.8 % (0.5-1.5); MetHb 0.3 % (0.0-1.5); O2Hb 94.8 % (94.0-97.0); SITE, ABG Right Brachial; VENT MODE, BG nasal cannula
[2022-04-20 12:00] VITALS: BP 113/55
[2022-04-20] MEDS: SODIUM BICARBONATE 650 MG TABLET PO SCH ×2 (13:00→16:12)
[2022-04-20] MEDS ORDERED: IV D5/0.45 NACL 500 ML IV SCH (13:00)
[2022-04-20] MEDS: IV D5/0.45 NACL 1,000 ML IV PRN (14:44)
--- NOTE | 2022-04-20 14:46 | NUR ---
RN NOTES - PICC LINE INSERTION CONSENTS SIGNED BY EFREN, PERFORMED ASEPTICALLY BY DANIA MCNULTY NP. CHEST XRAY ORDERED TO CONFIRM
[2022-04-20 16:17] VITALS: BP 117/95
[2022-04-20] MEDS: METOPROLOL SUCCINATE 25 MG TAB.SR.24H PO SCH (18:30)
--- NOTE | 2022-04-20 19:25 | NUR ---
MACHINERY DISMANTLER CLOSING NOTES PATIENT IS LYING IN BED AWAKE, OPENS EYES, LETHARGIC, UNABLE TO FOLLOW FOLLOW COMMANDS, INCOMPREHENSIBLE WORDS. STILL ON 2LPM VIA NC, BREATHING EVEN, NO SOB NOTED. NO APPARENT DISTRESS NOTED. IV ACCESSES: LFA G#22 WITH RUNNING D5 1/2 NS @75 ML/HR AND NEW PICC LINE PHILIP, BOTH PATENT, FLUSHING WELL, PATIENT VITAL SIGNS STABLE THROUGHOUT MY SHIFT, ON TELEMONITORING SHOWING SINUS TACHY WITH PACS AND PJCS WITH 108 BPM. PATIENT HAS PUREWICK DRAINING PALE YELLOW URINE. SAFETY MEASURES MAINTAINED: BED LOCKED AND IN LOWEST POSITION, SIDE RAILS 3X, TRAY TABLE AND CALL LIGHT WITHIN EASY REACH. WILL ENDORSE TO APPLIED RESEARCHER NURSE.
[2022-04-20 20:00] VITALS: BP 122/67
--- NOTE | 2022-04-20 20:08 | NUR ---
TRUCK DRIVING INSTRUCTOR OPENING NOTES PATIENT IS LYING IN BED AWAKE, OPENS EYES, LETHARGIC, UNABLE TO FOLLOW COMMANDS, INCOMPREHENSIBLE WORDS. STILL ON 2LPM VIA NC, BREATHING EVEN, NO SOB NOTED. NO APPARENT DISTRESS NOTED. IV ACCESSES: LFA G#22 WITH RUNNING D5 1/2 NS @75 ML/HR AND NEW PICC LINE PHILIP, BOTH PATENT, FLUSHING WELL, ON TELEMONITORING SHOWING SINUS TACHY WITH PACS AND PJCS WITH 108 BPM. PATIENT HAS PUREWICK DRAINING PALE YELLOW URINE. SAFETY MEASURES MAINTAINED: BED LOCKED AND IN LOWEST POSITION, SIDE RAILS 3X, TRAY TABLE AND CALL LIGHT WITHIN EASY REACH.
[2022-04-21] VITALS (32 sets, daily range): BP systolic 80–148; BP diastolic 37–104
[2022-04-21] MEDS: CEFEPIME 2 GM in IV D5W 100 ML IV SCH ×3 (04:28→22:14)
--- NOTE | 2022-04-21 06:21 | NUR ---
ENERGY CONTROL OFFICER NOTES PATIENT IS LYING IN BED AWAKE, OPENS EYES, LETHARGIC, UNABLE TO FOLLOW COMMANDS, INCOMPREHENSIBLE WORDS/ SOUNDS. STILL ON 2LPM VIA NC, BREATHING EVEN, NO SOB NOTED. NO APPARENT DISTRESS NOTED. IV ACCESSES: LFA G#22 ,PICC LINE PHILIP, BOTH PATENT, FLUSHING WELL, PICC LINE RUNNING D5 1/2 NS @75ML/HR ON TELEMONITORING SHOWING SINUS TACHY WITH PACS AND PJCS WITH 110 BPM. PATIENT HAS PUREWICK DRAINING PALE YELLOW URINE 500CC OUTPUT DURING SHIFT. SAFETY MEASURES MAINTAINED: BED LOCKED AND IN LOWEST POSITION, SIDE RAILS 3X, TRAY TABLE AND CALL LIGHT WITHIN EASY REACH.
[2022-04-21 07:09] LABS: CARBON DIOXIDE 15 mmol/L (21-32); CHLORIDE 109 mmol/L (98-107); CREATININE 1.9 mg/dL (0.6-1.3); GLUCOSE 153 mg/dL (74-106); MAGNESIUM 1.9 mg/dL (1.8-2.4); PHOSPHORUS 2.8 mg/dL (2.5-4.9); POTASSIUM 3.4 mmol/L (3.5-5.1); SODIUM SERUM 133 mmol/L (136-145); UREA NITROGEN, BLOOD 51 mg/dL (7-18)
--- NOTE | 2022-04-21 07:25 | NUR ---
PAVER OPERATOR OPENING NOTES RECEIVED PATIENT IS LYING IN BED AWAKE, OPENS EYES, LETHARGIC, UNABLE TO FOLLOW COMMANDS, INCOMPREHENSIBLE WORDS. STILL ON 2LPM VIA NC, BREATHING EVEN, NO SOB NOTED. NO APPARENT DISTRESS NOTED. IV ACCESSES: LFA G#22 WITH RUNNING D5 1/2 NS @75 ML/HR WITH PICC LINE PHILIP, BOTH PATENT, FLUSHING WELL, ON TELEMONITORING SHOWING SINUS TACHY WITH PACS AND PJCS WITH 113 BPM. PATIENT HAS PUREWICK DRAINING PALE YELLOW URINE. SAFETY MEASURES MAINTAINED: BED LOCKED AND IN LOWEST POSITION, SIDE RAILS 3X, TRAY TABLE AND CALL LIGHT WITHIN EASY REACH. WILL CONTINUE TO MONITOR.
[2022-04-21] MEDS: ENSURE CLEAR 237 ML LIQUID (MIX BERRY) PO SCH ×3 (08:00→17:00)
[2022-04-21 08:48] LABS: BASOPHILS % (AUTO) 0.3 % (0.0-2.0); EOSINOPHILS % (AUTO) 0.4 % (0.0-6.0); LYMPHOCYTES # (AUTO) 0.7 K/uL (0.8-4.8); LYMPHOCYTES % (AUTO) 5.4 % (20.0-44.0); MEAN CORPUSCULAR HGB CONC 32 g/dl (31.0-36.0); MEAN CORPUSCULAR VOLUME 94 fL (82-100); MONOCYTES # (AUTO) 0.9 K/uL (0.1-1.30); MONOCYTES % (AUTO) 7.4 % (2.0-12.0); NEUTROPHILS % (AUTO) 86.5 % (43.0-81.0); PLATELET COUNT (AUTO) 467 K/uL (150-450); RED BLOOD CELL COUNT(AUTO) 2.16 MIL/uL (4.0-5.2); WHITE BLOOD COUNT (AUTO) 12.8 K/uL (4.3-11.0)
--- NOTE | 2022-04-21 08:51 | NUR ---
RN NOTES - CRITICAL LAB VALUE PATIENT HGB 6.5 AND HCT 20, DR BREWER IS MADE AWARE, ORDERED I PRBC.
[2022-04-21 08:52] LABS: HEMATOCRIT 20 % (33-45); HEMOGLOBIN 6.5 g/dL (11.5-14.8)
[2022-04-21] MEDS: OXYBUTYNIN CHLORIDE 5 MG TABLET PO SCH ×3 (09:00→17:00)
[2022-04-21] MEDS: AMLODIPINE BESYLATE 5 MG TABLET PO SCH (09:00)
[2022-04-21] MEDS: CITALOPRAM HYDROBROMIDE 20 MG TABLET PO SCH (09:00)
[2022-04-21] MEDS: SODIUM BICARBONATE 650 MG TABLET PO SCH ×2 (09:00→17:00)
[2022-04-21] MEDS: PILOCARPINE HCL 5 MG TABLET PO SCH (09:00)
[2022-04-21 09:06] LABS: ABG BASE EXCESS -10.3 mmol/L; ABG OXYGEN SATURATION 96.2 % (92.0-98.5); ABG PCO2 24.7 mmHg (35.0-45.0); ABG PH 7.369 (7.350-7.450); ABG PO2 91.2 mmHg (75.0-100.0); AaDO2 79.3 mmHg; COHb 1.2 % (0.5-1.5); MetHb 0.3 % (0.0-1.5); O2Hb 94.8 % (94.0-97.0); SITE, ABG LEFT ARM; VENT MODE, BG 2LPM NC
[2022-04-21] MEDS: Z GUARD REMEDY 4 OZ OINT TP SCH (09:49)
[2022-04-21] MEDS ORDERED: POTASSIUM CL. PREMIX PERIPHER. 50 ML IV SCH (10:00)
[2022-04-21 10:15] LABS: BASOPHILS % (MANUAL) 0 % (0.0-2.0); EOSINOPHILS % (MANUAL) 0 % (0-4); LYMPHOCYTES % (MANUAL) 5 % (16-48); MONOCYTES % (MANUAL) 9 % (0-11.0); NEUTROPHILS % (MANUAL) 86 (42-76)
[2022-04-21] MEDS ORDERED: ENOXAPARIN SODIUM 80 MG/0.8 ML DISP.SYRIN SQ SCH (12:00)
[2022-04-21] MEDS ORDERED: HEPARIN INFUSION/D5W 500 ML IV PRN ×2 (12:30→15:30)
--- NOTE | 2022-04-21 13:05 | NUR ---
RN NOTES - BLOOD TRANSFUSION STARTED AT 1300, BASELINE VS TAKEN AND RECORDED.
--- NOTE | 2022-04-21 13:15 | NUR ---
RN NOTES - BLOOD TRANSFUSION 1ST 15 MINS NO REACTION, VS TAKEN AND RECORDED, STARTED AT 60 ML/HR. WILL INCREASE TO 100 ML/HR.
--- NOTE | 2022-04-21 15:45 | NUR ---
RN NOTES - BLOOD TRANSFUSION DONE PATIENT V/S TAKEN AND RECORDED, NO REACTION NOTED, AT BEDSIDE
[2022-04-21] MEDS ORDERED: HEPARIN SODIUM,PORCINE/PF 50 UNIT/5 ML DISP.SYRIN IV ONE (16:00)
[2022-04-21] MEDS ORDERED: HEPARIN SODIUM, PORCINE 5000 UNITS/1 ML VIAL IV ONE (16:00)
[2022-04-21] MEDS ORDERED: LORAZEPAM INJ 2 MG/ML VIAL IV ONE (16:00)
--- NOTE | 2022-04-21 17:10 | NUR ---
RN NOTES - HEPARIN INFUSION STARTED HEPARIN AT 1705 WITH BOLUS OF 6400 UNITS AND A INFUSION OF 1450 U/HR, CO-SIGNED AND CHECKED BY ALANA LARSEN. APTT AND PT INR ORDERED AT 1100. WILL CONTINUE TO MONITOR PATIENT.
--- NOTE | 2022-04-21 18:45 | NUR ---
RESPONDED TO A RAPID RESPONSE IN RM. [id number], UPON ARRIVAL PATIENT NOTED TO HAVE BRIGHT RED BLOOD AROUND MOUTH IN SEVERE RESPIRATORY DISTRESS USING ACCESSORY MUSCLES. PATIENT NOTED TO RAPIDLY DETERIOTING, DECISION WAS MADE TO TRANSFER PATIENT TO ICU IMMEDIATELY.
--- NOTE | 2022-04-21 19:00 | NUR ---
CALLED LEATHER DRESSER TO HAVE ER MD TO EVALUATE / INTUBATE PATIENT.
[2022-04-21 19:05] LABS: ABG BASE EXCESS -13.1 mmol/L; ABG PCO2 31.3 mmHg (35.0-45.0); ABG PO2 140.7 mmHg (75.0-100.0); AaDO2 108.5 mmHg; COHb 0.9 % (0.5-1.5); MetHb 0.4 % (0.0-1.5); O2Hb 96.7 % (94.0-97.0); SITE, ABG Right Radial; VENT MODE, BG Nasal Cannula
--- NOTE | 2022-04-21 19:05 | NUR ---
RECEIVED A CALL FROM GENERAL EDUCATION INSTRUCTOR TO CALL A CODE BLUE FOR ER MD TO COME UP KENDRA. PATIENT REMAINS AWAKE , USING ACCESSORY MUSCLES TO BREATH, IN SEVERE RESPIRATORY DISTRESS. AIRWAY PROTECTED, KEPT HOB ELEVATED TO PREVENT ASPIRATION. PATIENT SON IN UNIT, UPDATED WITH PATIENT CONDITION AND INTUBATION.
[2022-04-21] MEDS: METOPROLOL SUCCINATE 25 MG TAB.SR.24H PO SCH (19:30)
--- NOTE | 2022-04-21 19:36 | NUR ---
RN NOTE- PT W CHANGE LOC, DECLINING LAST FEW HOURS. HEP GTT STARTED APPROX 1700, PT STARTED BLEEDING MOUTH, CHEST CONGESTION, O2 SATS CHECKED, VS CHECKED RAPID RESPONSE CALLED,. TRANSFERRED TO ICU.
--- NOTE | 2022-04-21 19:49 | NUR ---
RT pt intubated for airway safety. intubated with ett 7.0, 23@teeth. vent settings: AC 22 400 100% +5. tube placement verified with bliateral chest rise, etco2, and lung sounds. awaiting x-ray confirmation. vent alarms on and audible. tube patent and secured. ambu bag at bedside. thick bloody secretions suctioned via ett.
[2022-04-21] MEDS ORDERED: ETOMIDATE 2 MG/ML VIAL IV ONE (20:07)
[2022-04-21] MEDS ORDERED: ROCURONIUM BROMIDE 50 MG/5 ML IV ONE (20:07)
[2022-04-21 20:58] LABS: ABG BASE EXCESS -12.4 mmol/L; ABG OXYGEN SATURATION 98.9 % (92.0-98.5); ABG PCO2 29.7 mmHg (35.0-45.0); AaDO2 202.3 mmHg; COHb 0.6 % (0.5-1.5); MetHb 0.1 % (0.0-1.5); O2Hb 98.2 % (94.0-97.0); SITE, ABG Left Radial; VENT MODE, BG AC 22 400 100% +5
--- NOTE | 2022-04-21 22:44 | NUR ---
RN NOTE' PRESS BUCKER DR COWAN, NOTIFIED REGARDING PT STATUS. POST INTUBATION ABG. PT BREATHING THROUGH THE VENT AND BP IN 80S HR IN 120S SINUS TACH. MD GAVE ORDER TO GIVE 1L NS BOLUS AND HALDOL 3MG IVP X1. AND TO CALL MORTGAGE COUNSELOR. CHARGE NURSE MADE AWARE.
[2022-04-21] MEDS ORDERED: IV NS 0.9% 1,000 ML IV ONE (23:00)
--- NOTE | 2022-04-21 23:15 | NUR ---
RN NOTE CALLED DR VIRK. NOTIFIED PT STATUS. ORDERED TO START PROPOFOL PER PROTOCOL AND LEVOPHED PRN. AND NOT TO GIVE HALDOL. CHARGE NURSE MADE AWARE.
[2022-04-21] MEDS: PROPOFOL 100 ML IV PRN (23:29)
[2022-04-21] MEDS ORDERED: HALOPERIDOL LACTATE INJ 5 MG/ML VIAL IV ONE (23:30)
--- NOTE | 2022-04-21 23:35 | NUR ---
RN/ICU- HALDOL ORDERED WAS NOT GIVEN, DIPRIVAN DRIP PER PROTOCOL STARTED AT 5MCG/KG/MIN. PER DR. VIRK ORDER RBTO.
[2022-04-22] VITALS (110 sets, daily range): BP systolic 69–152; BP diastolic 35–90
[2022-04-22] MEDS: IV D5/0.45 NACL 1,000 ML IV PRN (00:02)
[2022-04-22] MEDS ORDERED: NOREPINEPHRINE 4 MG/4 ML AMPUL IV ONE (00:51)
[2022-04-22] MEDS: NOREPINEPHRINE 8 MG in IV NS 0.9% 242 ML IV PRN (01:03)
--- NOTE | 2022-04-22 04:27 | NUR ---
RN NOTE CALLED DR COWAN, NOTIFIED REGARDING PT HR GOES TO 140S, ON AND OFF AFIB. WITH ORDER TO CHANGE PRESSOR TO NEOSYNEPHRINE. AND ALSO NOTIFIED REGARDING PT NO URINE OUTPUT SINCE MIDNIGHT AND CXRAY RESULT. ORDERED TO D/C IVFLUIDS D51/2NS AND TO GIVE 1L NS BOLUS. CHARGE NURSE MADE AWARE.
[2022-04-22] MEDS ORDERED: PHENYLEPHRINE 10 MG/ML VIAL ONE (04:34)
[2022-04-22] MEDS: PHENYLEPHRINE 100 MG in IV NS 0.9% 240 ML IV PRN ×2 (04:42→20:41)
[2022-04-22] MEDS ORDERED: IV NS 0.9% 1,000 ML IV ONE (05:00)
[2022-04-22] MEDS: PROPOFOL 100 ML IV PRN ×2 (05:44→16:40)
[2022-04-22] MEDS: CEFEPIME 2 GM in IV D5W 100 ML IV SCH ×3 (06:05→21:14)
--- NOTE | 2022-04-22 07:30 | NUR ---
ICU/RN PT IS INTUBATED ON THE VENT AC MODE FIO2-30%,SAT O2-100%.PT IS SEDATED WITH DIPRIVAN .ON NEOSYNEPHRINE DRIP.GENERALIZED EDEMA PRESENT.F/C IN PLACE .NO URINE OUTPUT.A-FIB ON MONITOR.AFEBRILE. LABS REVIEW.MD NOTIFIED.PT NEEDS 3 UNITS PRBC AND 2 UNITS OF FFP.
--- NOTE | 2022-04-22 07:37 | NUR ---
RN NOTE PT REMAIN INTUBATED AC 22 FIO2 40% TV 400 P5/ NO SIGNS OF DISTRESS. PT SEDATED WITH PROPOFOL AT 25MCG/KG/MIN. PT ON NEOSYNEPHRINE, TITRATED PER PROTOCOL. PT REMAIN AFEBRILE. BOBO CATH IN PLACE WITH 45ML URINE OUTPUT THE ENTIRE SHIFT. PT WITH GENERALIZED EDEMA. ENDORSED TO AM SHIFT NURSE FOR EMILIA.
[2022-04-22 07:59] LABS: ABG BASE EXCESS -14.9 mmol/L; ABG OXYGEN SATURATION 97.4 % (92.0-98.5); ABG PCO2 28.2 mmHg (35.0-45.0); ABG PH 7.223 (7.350-7.450); ABG PO2 156.3 mmHg (75.0-100.0); AaDO2 96.5 mmHg; COHb 0.3 % (0.5-1.5); O2Hb 97.1 % (94.0-97.0); PEEP,BG 5 cm H2O; SITE, ABG Right Radial; VT, ABG 400 mL
[2022-04-22] MEDS: ENSURE CLEAR 237 ML LIQUID (MIX BERRY) PO SCH ×3 (08:00→12:48)
[2022-04-22] MEDS: VANCOMYCIN 1 GM in IV D5W 250 ML IV SCH ×2 (08:30→08:39)
[2022-04-22] MEDS: SODIUM BICARBONATE 650 MG TABLET PO SCH ×2 (08:41→16:20)
[2022-04-22] MEDS: PILOCARPINE HCL 5 MG TABLET PO SCH (08:41)
[2022-04-22] MEDS: CITALOPRAM HYDROBROMIDE 20 MG TABLET PO SCH (08:41)
[2022-04-22] MEDS: OXYBUTYNIN CHLORIDE 5 MG TABLET PO SCH ×3 (08:41→16:20)
[2022-04-22 08:42] LABS: BASOPHILS # (AUTO) 0.1 K/uL (0.0-0.2); BASOPHILS % (AUTO) 0.4 % (0.0-2.0); EOSINOPHILS % (AUTO) 0.5 % (0.0-6.0); LYMPHOCYTES # (AUTO) 1.7 K/uL (0.8-4.8); MEAN CORPUSCULAR HGB CONC 31 g/dl (31.0-36.0); MEAN CORPUSCULAR VOLUME 97 fL (82-100); MONOCYTES # (AUTO) 1.9 K/uL (0.1-1.30); MONOCYTES % (AUTO) 11.4 % (2.0-12.0); NEUTROPHILS % (AUTO) 77.7 % (43.0-81.0); PLATELET COUNT (AUTO) 363 K/uL (150-450); WHITE BLOOD COUNT (AUTO) 16.7 K/uL (4.3-11.0)
[2022-04-22] MEDS: Z GUARD REMEDY 4 OZ OINT TP SCH (08:42)
[2022-04-22 08:47] LABS: RED BLOOD CELL COUNT(AUTO) 1.42 MIL/uL (4.0-5.2)
[2022-04-22 08:56] LABS: HEMOGLOBIN 4.3 g/dL (11.5-14.8)
[2022-04-22 08:57] LABS: HEMATOCRIT 14 % (33-45)
[2022-04-22 10:49] LABS: CALCIUM, SERUM 7.1 mg/dL (8.5-10.1); CARBON DIOXIDE 14 mmol/L (21-32); CHLORIDE 112 mmol/L (98-107); CREATININE 2.4 mg/dL (0.6-1.3); GLUCOSE 148 mg/dL (74-106); SODIUM SERUM 135 mmol/L (136-145); UREA NITROGEN, BLOOD 65 mg/dL (7-18)
--- NOTE | 2022-04-22 11:00 | NUR ---
ICU/RN PT HAS DARK BLOODY STOOL. NOTIFIED.PROTONIX DRIP STARTED.
[2022-04-22] MEDS: PANTOPRAZOLE 80 MG in IV NS 0.9% 500 ML IV SCH ×2 (12:37→21:15)
[2022-04-22] MEDS: METOPROLOL SUCCINATE 25 MG TAB.SR.24H PO SCH (16:20)
[2022-04-22] MEDS ORDERED: FENTANYL PF 100MCG/2ML AMPUL ONE (17:53)
--- NOTE | 2022-04-22 18:00 | NUR ---
ICU/RN 2 UNITS FFP AND 3 UNITS PRBC GIVEN ORDERED.PT TOLERATED WELL.NO S/S OF TRANSFUSION REACTION NOTED.
[2022-04-22] MEDS ORDERED: ANESTHESIA TRAY IN PYXIS 1 EA TRAY MC ONE (18:22)
[2022-04-22 18:28] LABS: BASOPHILS % (AUTO) 0.1 % (0.0-2.0); EOSINOPHILS % (AUTO) 0.3 % (0.0-6.0); HEMATOCRIT 30 % (33-45); HEMOGLOBIN 9.7 g/dL (11.5-14.8); LYMPHOCYTES # (AUTO) 0.9 K/uL (0.8-4.8); LYMPHOCYTES % (AUTO) 5.8 % (20.0-44.0); MEAN CORPUSCULAR HGB CONC 33 g/dl (31.0-36.0); MEAN CORPUSCULAR VOLUME 94 fL (82-100); MONOCYTES # (AUTO) 1.2 K/uL (0.1-1.30); NEUTROPHILS # (AUTO) 14.2 K/uL (1.8-8.9); NEUTROPHILS % (AUTO) 86.8 % (43.0-81.0); PLATELET COUNT (AUTO) 174 K/uL (150-450); RED BLOOD CELL COUNT(AUTO) 3.16 MIL/uL (4.0-5.2); WHITE BLOOD COUNT (AUTO) 16.4 K/uL (4.3-11.0)
--- NOTE | 2022-04-22 18:30 | NUR ---
ICU/RN EGD DONE.CT OF ABDOMEN STAT ORDERED.
--- NOTE | 2022-04-22 19:50 | NUR ---
RN NOTE PT BACK FROM CT. TRANSPORTED VIA ACLS PROTOCOL WITH 2RNS AND RTS.
[2022-04-22 19:52] LABS: BAND % (MANUAL) 3 % (0.0-5.0); LYMPHOCYTES % (MANUAL) 7 % (16-48); MONOCYTES % (MANUAL) 5 % (0-11.0); NEUTROPHILS % (MANUAL) 84 (42-76); REACTIVE LYMPHOCYTES 1 % (0-0)
--- NOTE | 2022-04-22 20:15 | NUR ---
RN NOTE PT ORALLY INTUBATED CONNECTED TO VENT. SEDATED WITH PROPOFOL. PT AT BEDSIDE, AWARE OF PTS CONDITION, ANSWERED ALL QUESTIONS. TITRATING NEOSYNEPHRINE DRIP PER PROTOCOL TO KEEP SBP>90. NOTED BLOODY OUTPUT FROM RECTUM. NO URINE OUTPUT, BOBO CATH IN PLACE. AFIB ON TELE MONITOR. WILL CONTINUE TO MONITOR.
--- NOTE | 2022-04-22 20:35 | NUR ---
RN NOTE RECEIVED A CALL FROM [facility]RI[facility] SPRINGER. CT RESULTS LARGE AMOUNT OF FREE AIR IN THE ABDOMEN, RECOMMENDING SURGICAL CONSULTATION. NOTIFIED GI DR MURRY.
--- NOTE | 2022-04-22 20:57 | NUR ---
RN NOTE SPOKE TO LAWANDA WAITE. NOTIFIED CT ABD RESULTS.
[2022-04-22 22:27] LABS: BAND % (MANUAL) 3 % (0.0-5.0); LYMPHOCYTES % (MANUAL) 9 % (16-48); MONOCYTES % (MANUAL) 5 % (0-11.0); NEUTROPHILS % (MANUAL) 83 (42-76)
[2022-04-22 23:14] LABS: BASOPHILS % (AUTO) 0.2 % (0.0-2.0); EOSINOPHILS % (AUTO) 0.7 % (0.0-6.0); HEMATOCRIT 29 % (33-45); HEMOGLOBIN 9.7 g/dL (11.5-14.8); LYMPHOCYTES # (AUTO) 1.3 K/uL (0.8-4.8); LYMPHOCYTES % (AUTO) 7.2 % (20.0-44.0); MEAN CORPUSCULAR HGB CONC 33 g/dl (31.0-36.0); MEAN CORPUSCULAR VOLUME 93 fL (82-100); MONOCYTES # (AUTO) 1.2 K/uL (0.1-1.30); MONOCYTES % (AUTO) 6.5 % (2.0-12.0); NEUTROPHILS # (AUTO) 15.5 K/uL (1.8-8.9); NEUTROPHILS % (AUTO) 85.4 % (43.0-81.0); PLATELET COUNT (AUTO) 197 K/uL (150-450); RED BLOOD CELL COUNT(AUTO) 3.12 MIL/uL (4.0-5.2); WHITE BLOOD COUNT (AUTO) 18.1 K/uL (4.3-11.0)
[2022-04-23] VITALS (97 sets, daily range): BP systolic 53–139; BP diastolic 30–91
[2022-04-23] MEDS: PROPOFOL 100 ML IV PRN ×3 (02:32→21:01)
[2022-04-23] MEDS: CEFEPIME 2 GM in IV D5W 100 ML IV SCH (04:47)
[2022-04-23 05:05] LABS: BASOPHILS % (AUTO) 0.2 % (0.0-2.0); EOSINOPHILS % (AUTO) 0.2 % (0.0-6.0); HEMATOCRIT 28 % (33-45); HEMOGLOBIN 9.3 g/dL (11.5-14.8); LYMPHOCYTES # (AUTO) 1.4 K/uL (0.8-4.8); LYMPHOCYTES % (AUTO) 5.8 % (20.0-44.0); MEAN CORPUSCULAR HGB CONC 33 g/dl (31.0-36.0); MEAN CORPUSCULAR VOLUME 94 fL (82-100); MONOCYTES # (AUTO) 1.2 K/uL (0.1-1.30); MONOCYTES % (AUTO) 5.3 % (2.0-12.0); NEUTROPHILS # (AUTO) 20.7 K/uL (1.8-8.9); NEUTROPHILS % (AUTO) 88.5 % (43.0-81.0); PLATELET COUNT (AUTO) 184 K/uL (150-450); RED BLOOD CELL COUNT(AUTO) 3.03 MIL/uL (4.0-5.2); WHITE BLOOD COUNT (AUTO) 23.4 K/uL (4.3-11.0)
[2022-04-23 05:29] LABS: ALANINE AMINOTRANSFERASE 16 U/L (12-78); ALKALINE PHOSPHATASE 61 U/L (46-116); ASPARTATE AMINOTRANSFERASE 39 U/L (15-37); BILIRUBIN,TOTAL 0.3 mg/dL (0.2-1.0); CALCIUM, SERUM 6.6 mg/dL (8.5-10.1); CARBON DIOXIDE 11 mmol/L (21-32); CHLORIDE 113 mmol/L (98-107); CREATININE 2.6 mg/dL (0.6-1.3); GLUCOSE 102 mg/dL (74-106); MAGNESIUM 1.6 mg/dL (1.8-2.4); PHOSPHORUS 3.5 mg/dL (2.5-4.9); POTASSIUM 3.7 mmol/L (3.5-5.1); SODIUM SERUM 136 mmol/L (136-145); TOTAL PROTEIN, SERUM 3.3 g/dL (6.4-8.2); UREA NITROGEN, BLOOD 69 mg/dL (7-18)
[2022-04-23 05:31] LABS: ALBUMIN 0.8 g/dL (3.4-5.0)
[2022-04-23 05:56] LABS: ABG BASE EXCESS -16.6 mmol/L; ABG OXYGEN SATURATION 96.5 % (92.0-98.5); ABG PCO2 24.2 mmHg (35.0-45.0); ABG PH 7.214 (7.350-7.450); ABG PO2 97.4 mmHg (75.0-100.0); AaDO2 88.1 mmHg; COHb 0.3 % (0.5-1.5); MetHb 0.2 % (0.0-1.5); PEEP,BG 5 cm H2O; SITE, ABG Right Radial; VT, ABG 400 mL
--- NOTE | 2022-04-23 07:03 | NUR ---
WOUND CARE CONSULT: PT SEEN FOR ABDOMINAL/GROIN FOLDS RASH WITH SOME MOISTURE ASSOCIATED OPEN SKIN. PT CONTINUES TO PRESENT WITH SACRAL DEEP TISSUE INJURY IN EVOLUTION, PRESENT ON ADMISSION. DISCUSSED SKIN PROTECTION WITH NURSING STAFF. PER NURSE, PT HAS BEEN HAVING RECTAL BLEEDING. MD AWARE. FIRST STEP LOW AIRLOSS MATTRESS IS ON ORDER. PT CURRENTLY INTUBATED. MD IN AGREEMENT WITH PLAN OF CARE.
--- NOTE | 2022-04-23 07:17 | NUR ---
RN NOTE PT TOLERATING VENT SETTINGS. NO SIGNS OF DISTRESS. PT REMAIN SEDATED WITH PROPOFOL. PT CONTINUE ON NEOSYNEPHRINE, TITRATED PER PROTOCOL. PT REMAIN AFEBRILE. BOBO CATH IN PLACE WITH NO URINE OUTPUT THE ENTIRE SHIFT. PT WITH GENERALIZED EDEMA, WEEPING ON MIA. ARM. X1 RECTAL BLEEDING THE WHOLE SHIFT.
[2022-04-23] MEDS ORDERED: DOSE PER PHARMACY MICAFUNGIN 1 EA XX PRN (07:30)
[2022-04-23] MEDS: ENSURE CLEAR 237 ML LIQUID (MIX BERRY) PO SCH ×3 (08:00→15:58)
[2022-04-23] MEDS: PANTOPRAZOLE 80 MG in IV NS 0.9% 500 ML IV SCH ×2 (08:04→17:04)
[2022-04-23] MEDS: OXYBUTYNIN CHLORIDE 5 MG TABLET PO SCH ×3 (08:06→15:57)
[2022-04-23] MEDS: CITALOPRAM HYDROBROMIDE 20 MG TABLET PO SCH (08:06)
[2022-04-23] MEDS: PILOCARPINE HCL 5 MG TABLET PO SCH (08:07)
[2022-04-23] MEDS: SODIUM BICARBONATE 650 MG TABLET PO SCH ×2 (08:07→15:58)
[2022-04-23] MEDS: Z GUARD REMEDY 4 OZ OINT TP SCH (08:08)
[2022-04-23] MEDS: VANCOMYCIN 0.75 GM in IV D5W 250 ML IV SCH (08:58)
[2022-04-23] MEDS: Magnesium 1GM/D5W 100ML PREMIX 100 ML IV SCH ×2 (08:58→10:06)
[2022-04-23] MEDS ORDERED: MEROPENEM 1 G in IV NS 0.9% 100 ML IV SCH (09:00)
--- NOTE | 2022-04-23 09:00 | NUR ---
ICU/RN SEDATION VACATION PROVIDED.DIPRIVAN OFF PT IS NOT RESPONSIVE. NOTIFIED.
[2022-04-23] MEDS: CLOTRIMAZOLE 1% 15 GM TUBE TP SCH ×2 (10:06→15:59)
[2022-04-23] MEDS: MICAFUNGIN SODIUM 100 MG in IV NS 0.9% 100 ML IV SCH (10:09)
[2022-04-23] MEDS: MEROPENEM 500 MG in IV NS 0.9% 50 ML IV SCH ×2 (10:09→20:53)
--- NOTE | 2022-04-23 13:00 | NUR ---
ICU/RN NEW HD LEFT FEMORAL CATHETER PLACED ORDERED. WAITING FOR HD.
--- NOTE | 2022-04-23 15:00 | NUR ---
ICU/RN PT FAMILY AT BED SIDE TALK TO ALL DOCTORS DR NIÑO,DR YUN,DR CLARK ,DR SCHWARTZ ,DR MONREAL. PT IS IN VERY CRITICAL CONDITION .NEED SURGERY,HEMODIALYSIS.NEED TO BE TRANSFER TO HIGHER ACUITY LEVEL.RUFFLING MACHINE OPERATOR NOTIFIED.
[2022-04-23] MEDS: PHENYLEPHRINE 100 MG in IV NS 0.9% 240 ML IV PRN (15:54)
[2022-04-23] MEDS: ALBUMIN 25% 25 GM in PREMIX 1 EA IV PRN (15:57)
[2022-04-23] MEDS: METOPROLOL SUCCINATE 25 MG TAB.SR.24H PO SCH (15:59)
--- NOTE | 2022-04-23 18:10 | NUR ---
ICU/TUNNEL ELASTIC OPERATOR ZIGZAG #1 OS OVER 500 ML OUT.ALBUMIN DURING HD GIVEN .
--- NOTE | 2022-04-23 20:15 | NUR ---
RN NOTE PT FAMILY AT BEDSIDE. PT REMAIN SEDATED WITH PROPOFOL. PT WIGGLING TOES. NO SIGNS OF DISTRESS NOTED. ON PRESSOR SHERICE. AFIB ON TELE MONITOR. WILL CONTINUE TO MONITOR
[2022-04-24] VITALS (80 sets, daily range): BP systolic 70–137; BP diastolic 45–86
[2022-04-24] MEDS: PHENYLEPHRINE 100 MG in IV NS 0.9% 240 ML IV PRN ×3 (00:16→22:56)
[2022-04-24] MEDS: PANTOPRAZOLE 80 MG in IV NS 0.9% 500 ML IV SCH ×3 (03:25→22:06)
[2022-04-24] MEDS: PROPOFOL 100 ML IV PRN (04:24)
[2022-04-24 04:45] LABS: ABG BASE EXCESS -12.8 mmol/L; ABG OXYGEN SATURATION 96.2 % (92.0-98.5); ABG PCO2 28.9 mmHg (35.0-45.0); ABG PH 7.268 (7.350-7.450); ABG PO2 87.6 mmHg (75.0-100.0); AaDO2 92.3 mmHg; COHb 0.1 % (0.5-1.5); MetHb 0.2 % (0.0-1.5); O2Hb 95.9 % (94.0-97.0); SITE, ABG Right Radial
[2022-04-24 05:29] LABS: CALCIUM, SERUM 7.3 mg/dL (8.5-10.1); CARBON DIOXIDE 14 mmol/L (21-32); CHLORIDE 110 mmol/L (98-107); CREATININE 2.3 mg/dL (0.6-1.3); GLUCOSE 98 mg/dL (74-106); POTASSIUM 3.6 mmol/L (3.5-5.1); SODIUM SERUM 136 mmol/L (136-145); UREA NITROGEN, BLOOD 53 mg/dL (7-18)
[2022-04-24 06:25] LABS: BASOPHILS % (AUTO) 0.1 % (0.0-2.0); EOSINOPHILS % (AUTO) 0.2 % (0.0-6.0); HEMATOCRIT 24 % (33-45); LYMPHOCYTES # (AUTO) 1.5 K/uL (0.8-4.8); LYMPHOCYTES % (AUTO) 4.7 % (20.0-44.0); MEAN CORPUSCULAR HGB CONC 33 g/dl (31.0-36.0); MEAN CORPUSCULAR VOLUME 94 fL (82-100); MONOCYTES # (AUTO) 1.3 K/uL (0.1-1.30); NEUTROPHILS # (AUTO) 28.7 K/uL (1.8-8.9); PLATELET COUNT (AUTO) 152 K/uL (150-450); RED BLOOD CELL COUNT(AUTO) 2.61 MIL/uL (4.0-5.2)
--- NOTE | 2022-04-24 06:54 | NUR ---
RN NOTE PER REGAL SUPERVISOR CORE DRILLING PT NEEDS PCR COVID TEST FOR TRANSFER TO [facility]
[2022-04-24 06:55] LABS: WHITE BLOOD COUNT (AUTO) 31.5 K/uL (4.3-11.0)
--- NOTE | 2022-04-24 07:17 | NUR ---
RN NOTE PT REMAIN SEDATED WITH PROPOFOL AT 20MCG/KG/MIN. PT ON NEOSYNEPHRINE, TITRATED PER PROTOCOL. PT REMAIN AFEBRILE. BOBO CATH IN PLACE WITH NO URINE OUTPUT THE ENTIRE SHIFT. PT WITH GENERALIZED EDEMA WEEPING ON MIA. ARM. R.FEMORAL HD CATH INTACT AND PHILIP PICC LINE INTACT AND PATENT. NO RECTAL BLEEDING NOTED DURING SHIFT.
[2022-04-24] MEDS: ENSURE CLEAR 237 ML LIQUID (MIX BERRY) PO SCH ×3 (07:55→16:02)
[2022-04-24] MEDS: VANCOMYCIN 0.75 GM in IV D5W 250 ML IV SCH (07:56)
--- NOTE | 2022-04-24 07:59 | NUR ---
ICU/RN PT RECEIVED IN BED, SEDATED. PT INTUBATED ON MECHANICAL VENTILATOR FIO2 30% PEEP OF 5 SAT 99% ON BEDSIDE MONITOR. AFIB HR 113 ON MONITOR. BOBO CATH IN PLACE, NO OUTPUT, PT SCHEDULED FOR HD TODAY. RIGHT UA PICC LINE AND RIGHT FEMORAL HD CATH IN PLACE. PT ON SHERICE AT 1MCG/KG/MIN, PROPOFOL AT 20MCG/KG/MIN AND PROTONIX AT 8MG/HR. BED LOCKED AND IN LOWEST POSITION, CALL LIGHT WITHIN REACH, 3 SIDE RAILS UP.
[2022-04-24] MEDS: OXYBUTYNIN CHLORIDE 5 MG TABLET PO SCH ×3 (08:14→16:02)
[2022-04-24] MEDS: CITALOPRAM HYDROBROMIDE 20 MG TABLET PO SCH (08:14)
[2022-04-24] MEDS: PILOCARPINE HCL 5 MG TABLET PO SCH (08:14)
[2022-04-24] MEDS: CLOTRIMAZOLE 1% 15 GM TUBE TP SCH ×2 (08:15→16:19)
[2022-04-24] MEDS: Z GUARD REMEDY 4 OZ OINT TP SCH (08:15)
[2022-04-24] MEDS: SODIUM BICARBONATE 650 MG TABLET PO SCH ×2 (08:15→16:02)
--- NOTE | 2022-04-24 08:52 | NUR ---
ICU/RN TALKED TO CM REGARDING [employer] CALLING DURING HYDROGRAPHICAL TECHNICAL OFFICER. NUMBER OF [employer] VP CLINICAL RESEARCH GIVEN. [phone]
--- NOTE | 2022-04-24 08:52 | NUR ---
ICU/RN YULI GLYNN AT BEDSIDE, UPDATED ON POC. SON IN AGREEMENT WITH TRANSFER TO [facility].
[2022-04-24] MEDS: MEROPENEM 500 MG in IV NS 0.9% 50 ML IV SCH ×2 (08:55→20:33)
[2022-04-24] MEDS: MICAFUNGIN SODIUM 100 MG in IV NS 0.9% 100 ML IV SCH (09:24)
--- NOTE | 2022-04-24 11:01 | NUR ---
ICU/RN PT OFF SEDATION FOR 30 MINUTES, EYES OPEN, MINOR REACTION TO PAINFUL STIMULI, DOES NOT FOLLOW VERBAL COMMAND, DOES NOT FOLLOW WITH HER EYES AT THIS TIME. DR. SCHWARTZ AWARE, ORDER TO KEEP OFF SEDATION LONG PT IS NOT IN DISTRESS. FAMILY AT BEDSIDE, IN AGREEMENT WITH POC.
[2022-04-24] MEDS: ALBUMIN 25% 25 GM in PREMIX 1 EA IV PRN (13:33)
--- NOTE | 2022-04-24 15:01 | NUR ---
ICU/RN HD COMPLETED, 1,000ML REMOVED. BP 115/78 HR 122.
[2022-04-24 16:51] LABS: LYMPHOCYTES % (MANUAL) 3 % (16-48); MONOCYTES % (MANUAL) 3 % (0-11.0); NEUTROPHILS % (MANUAL) 94 (42-76)
[2022-04-24] MEDS: METOPROLOL SUCCINATE 25 MG TAB.SR.24H PO SCH (17:39)
--- NOTE | 2022-04-24 19:30 | NUR ---
ICU/RN RECEIVED PT IN BED, OBTUNDED, WITH EYES OPEN. PT INTUBATED ON MECHANICAL VENTILATOR FIO2 30%; PEEP OF 5; O2 SAT 98% ON BEDSIDE MONITOR. AFIB HR 120s ON TELE MONITOR. NO S/SX OF ACUTE RESPI DISTRESS NOTED AT THIS TIME. RIGHT UA PICC LINE AND RIGHT FEMORAL HD CATH IN PLACE. ON SHERICE DRIP AT 1.2 MCG/KG/MIN, AND PROTONIX AT 50 ML/HR. BOBO CATH NOTED, NO OUTPUT AT THIS TIME. ALL SAFETY MEASURES IN PLACE: BED LOCKED AND IN LOWEST POSITION, CALL LIGHT WITHIN REACH, 3 SIDE RAILS UP.WILL CONTINUE TO MONITOR PT.
[2022-04-25] VITALS (20 sets, daily range): BP systolic 74–129; BP diastolic 44–86
--- NOTE | 2022-04-25 00:20 | NUR ---
RN NOTE UNABLE TO READ BP SINCE MIDNIGHT. TITRATED SHERICE UP TO 1.4 MCG/KG/MIN.
[2022-04-25] MEDS ORDERED: NOREPINEPHRINE 4 MG/4 ML AMPUL IV ONE (02:14)
[2022-04-25] MEDS: NOREPINEPHRINE 8 MG in IV NS 0.9% 242 ML IV PRN ×2 (02:22→05:19)
--- NOTE | 2022-04-25 02:24 | NUR ---
RN NOTE STARTED PT ON LEVO DRIP ORDERED DUE TO DRASTIC CHANGE IN BP AND HEART RATE, STARTING DOSE AT 0.1 MCG/KG/MIN.. WILL CONTINUE TO MONITOR STRICTLY.
--- NOTE | 2022-04-25 02:36 | NUR ---
RN NOTE PT IS CRASHING, CHARGE NURSE ED MAXXED LEVO AND SHERICE DRIP TO 1 MCG/KG/MIN AND 3 MCG/KG/MIN RESPECTIVELY. WILL CONTINUE TO MONITOR.
[2022-04-25] MEDS ORDERED: VASOPRESSIN INJ 40 UNIT in IV NS 0.9% 38 ML IV PRN (03:30)
[2022-04-25] MEDS ORDERED: VASOPRESSIN INJ 20 UNIT/ML VIAL ONE (03:32)
[2022-04-25] MEDS ORDERED: PHENYLEPHRINE 10 MG/ML VIAL ONE (04:23)
[2022-04-25] MEDS: PHENYLEPHRINE 100 MG in IV NS 0.9% 240 ML IV PRN ×2 (05:54→11:13)
--- NOTE | 2022-04-25 06:11 | NUR ---
RN NOTE PT CURRENTLY ON SHERICE DRIP @ 3 MCG/KG/MIN, LEVO @ 0.3 MCK/KG/MIN, VASOPRESSIN @ 0.03 MCG/KG/MIN AND PROTONIX @ 50 CC/HR. BOTH IV LINE INTACT AND PATENT. PT STILL AFIB WITH HR >140 BPM. O2 SAT >95%. BP IS CURRENTLY STABLE. PT IS AFEBRILE WITH NO S/SX OF ACUTE RESPI DISTRESS AT THIS TIME. ON BED SIDE. PT NOW DNR. WILL ENDORSE TO AM SHIFT NURSE FOR EMILIA.
[2022-04-25] MEDS: ENSURE CLEAR 237 ML LIQUID (MIX BERRY) PO SCH ×3 (07:23→16:08)
--- NOTE | 2022-04-25 07:27 | NUR ---
ICU/RN PT RECEIVED IN CRITICAL CONDITION. PT INTUBATED 100% FIO2. PT ONE LEVO AT 0.3MCG/KG/MIN, SHERICE AT 3MCG/KG/MIN, VASO AT 0.03 UNITS/MIN. HR IN THE 140S ON MONITOR. AT BEDSIDE. PT DNR AT THIS TIME PER FAMILY REQUEST. BED LOCKED AND IN LOWEST POSITION, CALL LIGHT WITHIN REACH, 3 SIDE RAILS UP.
[2022-04-25] MEDS: VANCOMYCIN 0.75 GM in IV D5W 250 ML IV SCH (07:42)
[2022-04-25] MEDS: PILOCARPINE HCL 5 MG TABLET PO SCH (08:00)
[2022-04-25] MEDS: CITALOPRAM HYDROBROMIDE 20 MG TABLET PO SCH (08:00)
[2022-04-25] MEDS: OXYBUTYNIN CHLORIDE 5 MG TABLET PO SCH ×3 (08:00→16:08)
[2022-04-25] MEDS: SODIUM BICARBONATE 650 MG TABLET PO SCH ×2 (08:00→16:08)
[2022-04-25] MEDS: PANTOPRAZOLE 80 MG in IV NS 0.9% 500 ML IV SCH (08:01)
[2022-04-25] MEDS: Z GUARD REMEDY 4 OZ OINT TP SCH (08:01)
[2022-04-25] MEDS: CLOTRIMAZOLE 1% 15 GM TUBE TP SCH ×2 (08:01→16:09)
[2022-04-25] MEDS: MEROPENEM 500 MG in IV NS 0.9% 50 ML IV SCH (08:48)
[2022-04-25] MEDS: NOREPINEPHRINE 32 MG in IV NS 0.9% 218 ML IV PRN ×2 (08:53→14:45)
[2022-04-25] MEDS: MICAFUNGIN SODIUM 100 MG in IV NS 0.9% 100 ML IV SCH (09:18)
--- NOTE | 2022-04-25 09:27 | NUR ---
ICU/RN PER REQUEST, NO LAB DRAWN OR CXR THIS AM. HE WISHES FOR THE PT TO BE COMFORTABLE AT POSSIBLE
--- NOTE | 2022-04-25 10:11 | NUR ---
ICU/RN AT BEDSIDE, VERBALIZES UNDERSTANDING OF CRITICAL CONDITION OF PATIENT. TALKED IN PERSON WITH DR. SCHWARTZ THIS AM. PER REQUEST NOT TO MOVE PT AND ALLOW HER TO STAY ON HER BACK TO KEEP HER COMFORTABLE. PT NOT TURNED AND REPOSITIONED.
--- NOTE | 2022-04-25 14:20 | NUR ---
ICU/RN UNABLE TO TAKE BLOOD PRESSURE, ATTEMPTED ON BILATERAL LEGS AND ARMS. AWARE. PULSE WEAK BUT PALPABLE AND AUDIBLE WITH DOPPLER.
--- NOTE | 2022-04-25 16:50 | NUR ---
NO SPONTANEOUS RESPIRATIONS. ABSENT PERIPHERAL PULSES BY DOPPLER. PUPILS FIXED AND DILATED. PT PRONOUNCED AT 1648. DR MONREAL AT BEDSIDE, PRIMARY PHYSICIAN FOR PATIENT AGREES WITH PRONOUNCEMENT. PRIMARY RN HAVEN AT BEDSIDE. FAMILY TO BE NOTIFIED.
--- NOTE | 2022-04-25 17:16 | NUR ---
ICU/RN [facility] CONTACTED [phone]
--- NOTE | 2022-04-25 17:17 | NUR ---
ICU/RN [facility] CALLED TALKED TO LUCIANA COLLINS
--- NOTE | 2022-04-25 17:18 | NUR ---
ICU/RN ADMITTING AND NURSING FISCAL ACCOUNTANT NOTIFIED.
--- NOTE | 2022-04-25 18:04 | NUR ---
ICU/RN NO BELONGINGS AT BEDSIDES. PT CLEANED AND IDENTIFICATION TAGS PLACED PER PROTOCOL. SECURITY CALLED FOR COSMETOLOGY PROFESSOR.
== END 2022-04-25 16:48 | DRG 871 ==
LOC: ER 11:36 → TRANSITION 17:27 → TELE 19:48 → ICU 04-21 18:52
PROVIDERS: ADMIT Internal Medicine; ATTEND Internal Medicine
PROC: 0W9B3ZX Drainage of Left Pleural Cavity, Percutaneous Approach, Diagnostic (ICD-10-PCS; 2022-04-06)
PROC: 3E03317 Introduction of Other Thrombolytic into Peripheral Vein, Percutaneous Approach (ICD-10-PCS; 2022-04-13)
PROC: 02HV33Z Insertion of Infusion Device into Superior Vena Cava, Percutaneous Approach (ICD-10-PCS; 2022-04-20)
PROC: B548ZZA Ultrasonography of Superior Vena Cava, Guidance (ICD-10-PCS; 2022-04-20)
PROC: 5A1945Z Respiratory Ventilation, 24-96 Consecutive Hours (ICD-10-PCS; 2022-04-21)
PROC: 0BH18EZ Insertion of Endotracheal Airway into Trachea, Via Natural or Artificial Opening Endoscopic (ICD-10-PCS; 2022-04-21)
PROC: 0DJ08ZZ Inspection of Upper Intestinal Tract, Via Natural or Artificial Opening Endoscopic (ICD-10-PCS; 2022-04-21)
PROC: 30233N1 Transfusion of Nonautologous Red Blood Cells into Peripheral Vein, Percutaneous Approach (ICD-10-PCS; 2022-04-21)
PROC: 30233K1 Transfusion of Nonautologous Frozen Plasma into Peripheral Vein, Percutaneous Approach (ICD-10-PCS; 2022-04-22)
PROC: 02HV33Z Insertion of Infusion Device into Superior Vena Cava, Percutaneous Approach (ICD-10-PCS; principal; 2022-04-23)
PROC: B548ZZA Ultrasonography of Superior Vena Cava, Guidance (ICD-10-PCS; 2022-04-23)
DX: A41.9 Sepsis, unspecified organism (principal); G93.41 Metabolic encephalopathy; J15.9 Unspecified bacterial pneumonia; N17.0 Acute kidney failure with tubular necrosis; J86.9 Pyothorax without fistula; K28.6 Chronic or unspecified gastrojejunal ulcer with both hemorrhage and perforation; J96.00 Acute respiratory failure, unspecified whether with hypoxia or hypercapnia; R65.21 Severe sepsis with septic shock; E87.1 Hypo-osmolality and hyponatremia; E87.20 Acidosis, unspecified; I48.0 Paroxysmal atrial fibrillation; E88.09 Other disorders of plasma-protein metabolism, not elsewhere classified; I12.9 Hypertensive chronic kidney disease with stage 1 through stage 4 chronic kidney disease, or unspecified chronic kidney disease; N18.9 Chronic kidney disease, unspecified; E86.0 Dehydration; E87.6 Hypokalemia; R34 Anuria and oliguria; Z66 Do not resuscitate; D63.1 Anemia in chronic kidney disease; Z20.822 Contact with and (suspected) exposure to COVID-19; F32.A Depression, unspecified
CPT/HCPCS: 31720; 36415; 36569; 36600; 70450-TC; 70551-TC; 71045-TC; 71250-TC; 75989-TC; 76770-TC; 80048-TC; 80053-TC; 80076-TC; 80202-TC; 82533; 82607-TC; 82803-TC; 82962-TC; 83605-TC; 83735-TC; 83880; 84100-TC; 84443-TC; 84484-TC; 85025-TC; 85610-TC; 85730-TC; 86480; 86803; 86850-TC; 87040-TC; 87081-TC; 87806; 87899; 88108-TC; 88305-TC; 89051-TC; 90935-TC; 92526; 92611-TC; 93307-TC; 94002-TC; 94003-TC; 94760-TC; 94799-TC; 95819-TC; 97110-TC; 97112-TC; 97530-TC; 99082-TC; A4216; C9113; G0378; J0360; J0692; J1642; J1644; J1940; J2060; J2185; J2248; J2370; J2405; J2543; J2704; J2997; J3010; J3370; J3475; J3480; J3490; J7030; J7040; J7050; J7060; P9016; P9017; P9047; U0003